=== PATIENT | male | born 1940 | race Caucasian/White ===

== ENCOUNTER 2016-10-09 12:31 | Inpatient (IN) | payer OTHER, MEDICARE ==
[~2016-10-09] VITALS: Ht 182.9 cm; Wt 89.8 kg
[~2016-10-09 12:31] MED LIST: LISINOPRIL40 M1 PO; METFORMIN HCL500 M3 PO
--- NOTE | 2016-10-09 12:56 | NUR ---
AKIL FROM HOME FOR INCREASED WEAKNESS, FREQUENT FALLS AND INABILITY TO AMBULATE FOR 2-4 WEEKS. 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 REPORTS SEVERAL YEARS AGO PT HAD "A PINCHED NERVE IN HIS BACK" AND RECIEVED AN INJECTION AND HAS WALKED INDEPENDENTLY SINCE THEN UNTIL PAST MONTH, WHEN PT HAS STARTED USING A WALKER, FALLING OFTEN AND NOW IS TOTALLY UNABLE TO AMBULATE. FELL 2 DAYS AGO AND HIT HEAD (ABRAISION TO RIGHT FOREHEAD), PT DENIES SMITH/DIZZINESS/N/V AND NEIGHBOR DENIES NEURO CHANGES SINCE, ALSO FELL LAST NIGHT. PT REPORTS HE WAS NOT DIZZY AND CAN RECALL DETAILS OF EACH FALL, "JUST NOT STRONG ENOUGH TO KEEP WALKING." WAS SEEN YESTERDAY AT [facility], WITH NEIGHBOR REPORTING PT HAD TO BE CARRIED INTO THE OFFICE BUT IS UNABLE TO STATE IF THERE WERE ANY RECOMMENDATIONS/FINDING. NEIGHBOR REPORTS PT HAS HAD SOME GRADUAL COGNITIVE DECLINE OVER THE LAST FEW YEARS BUT NOTHING ACUTE. PT HAS NO COMPLAINTS CURRENTLY EXCEPT "I CAN'T WALK" AND "MY LEG HURTS" WHICH HE REPORTS CHRONIC PAIN NOT RELATED TO TRAUMA AND MILD WHEN SITTING ON STRETCHER.
--- NOTE | 2016-10-09 12:56 | NUR ---
PA STUDENT AT BEDSIDE FOR EVAL.
--- NOTE | 2016-10-09 13:04 | ED MVC/FALL/TRAUMA COMPLAINT ---
History of Present Illness General Chief Complaint: Fall Stated Complaint: FALL Source: patient, old records Exam Limitations: no limitations Vital Signs & Intake/Output Vital Signs & Intake/Output Vital Signs Date Time Temp Pulse Resp B/P B/P Pulse O2 O2 Flow FiO2 Mean Ox Delivery Rate 10/12 0924 65 138/70 10/12 0634 98.4 60 20 136/68 98 Room Air / 0000 97 Room Air 10/11 2254 98.0 70 20 142/70 97 Room Air 10/11 1417 98.3 80 20 140/70 97 Room Air 10/11 1348 Room Air ED Intake and Output 10/12 0000 10/11 1200 Intake Total 1820 600 Output Total 100 Balance 1720 600 Intake, IV 1220 600 Intake, Oral 600 Output, Stool 100 Allergies Coded Allergies: NO KNOWN ALLERGIES (09/15/15) Triage Note: BIBA FROM HOME FOR INCREASED WEAKNESS, FREQUENT FALLS AND INABILITY TO AMBULATE FOR 2-4 WEEKS. 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 REPORTS SEVERAL YEARS AGO PT HAD "A PINCHED NERVE IN HIS BACK" AND RECIEVED AN INJECTION AND HAS WALKED INDEPENDENTLY SINCE THEN UNTIL PAST MONTH, WHEN PT HAS STARTED USING A WALKER, FALLING OFTEN AND NOW IS TOTALLY UNABLE TO AMBULATE. FELL 2 DAYS AGO AND HIT HEAD (ABRAISION TO RIGHT FOREHEAD), PT DENIES SMITH/DIZZINESS/N/V AND NEIGHBOR DENIES NEURO CHANGES SINCE, ALSO FELL LAST NIGHT. PT REPORTS HE WAS NOT DIZZY AND CAN RECALL DETAILS OF EACH FALL, "JUST NOT STRONG ENOUGH TO KEEP WALKING." WAS SEEN YESTERDAY AT [facility], WITH NEIGHBOR REPORTING PT HAD TO BE CARRIED INTO THE OFFICE BUT IS UNABLE TO STATE IF THERE WERE ANY RECOMMENDATIONS/FINDING. NEIGHBOR REPORTS PT HAS HAD SOME GRADUAL COGNITIVE DECLINE OVER THE LAST FEW YEARS BUT NOTHING ACUTE. PT HAS NO COMPLAINTS CURRENTLY EXCEPT "I CAN'T WALK" AND "MY LEG HURTS" WHICH HE REPORTS CHRONIC PAIN NOT RELATED TO TRAUMA AND MILD WHEN SITTING ON STRETCHER. Triage Nurses Notes Reviewed? yes Onset: Gradual Duration: week(s):, constant, getting worse Timing: recent history Severity: mild, moderate Severity Numbers: 6 Injuries/Fall Location: lower extremity Method of Injury: fall Loss of Consciousness: no loss of consciousness No Modifying Factors: none Associated Symptoms: denies HPI: 76-year-old male with history of diabetes hypertension rectal cancer presents to ER for evaluation with a neighbor who states that he has had multiple falls despite using his walker over the past several weeks. The patient states that he has had a history of right leg weakness, and pain for the past several months for which she was seen at [facility] earlier this week and was diagnosed with arthritis. He is prescribed tramadol for the pain. According to the neighbor the patient has been unstable with using his walker and fell yesterday there was no head strike no loss of consciousness the patient denies any other injury secondary to the fall. He denies any prodromal dizziness lightheadedness palpitations prior to the fall. No confusion or change in his mental status per neighbor (SHEILA HUDSON) Reconcile Medications Cyanocobalamin (Vitamin B-12) 1,000 MCG TABLET 1,000 MCG PO DAILY SUPPLEMENT Dexamethasone 1 MG TABLET 4 MG PO Q6 SPINAL CORD COMPRESSION Lisinopril 40 MG TABLET 1 TAB PO DAILY BP (Reported) Metformin HCl 500 MG TABLET 1 TAB PO BID DIABETES (Reported) Mirabegron (Myrbetriq) (Unknown Strength) TAB.ER.24H 25 MG PO DAILY BLADDER ( Reported) Omeprazole 20 MG CAPSULE.DR 40 MG PO DAILY AC gerd Prochlorperazine Maleate 10 MG TABLET 1 TAB PO Q6 PRN GI (Reported) Tramadol HCl 50 MG TABLET 1 TAB PO BIDP PRN PAIN (Reported) (ROSHAN BLANCAS,NICOLA) Past History Travel History Traveled to [place] past 21 day No Medical History Any Pertinent Medical History? see below for history Neurological: NONE EENT: NONE Cardiovascular: hypertension Respiratory: NONE Gastrointestinal: NONE Hepatic: NONE Renal: NONE Musculoskeletal: NONE Psychiatric: NONE Endocrine: diabetes Blood Disorders: NONE Cancer(s): RECTAL CA COPY READER/Reproductive: NONE Surgical History Surgical History: non-contributory Psychosocial History What is your primary language Turkish Family History Hx Contributory? No (SHEILA HUDSON) Review of Systems Review of Systems Constitutional: Reports: see HPI. All Other Systems: Reviewed and Negative Comments Review of systems: See HPI, All other systems negative. Constitutional, no chills no fever, malaise HEENT: No visual changes no sore throat no congestion, no ear pain Cardiovascular: No chest pain , no palpitation Skin: no rashes, no change in skin Respiratory: No dyspnea no cough no sputum no hemoptysis GI: No nausea no vomiting, no diarrhea, : No dysuria No hematuria Muscle skeletal: No joint pain, no back pain, no neck pain, Neurologic: No numbness no confusion, no headache Psych: No stress Heme/endocrine: No bruising no bleeding Immunology: No lymphadenopathy (NICHOL GAYLE,SHEILA) Physical Exam Physical Exam General Appearance: well developed/nourished, no apparent distress, alert, awake Comments: Well-developed well-nourished person in no acute distress HEENT: Normal EENT exam; PERRL, EOMI, no nystagmus. HEAD is atraumatic. moist mucous membranes. Neck: Supple, no lymphadenopathy, normal range of motion without pain or tenderness Back: Nontender, no CVA tenderness. Full range of motion no midline tenderness no ecchymosis or signs of trauma Cardiovascular: Regular rate and rhythms no murmurs rubs or gallops, normal JVP Respiratory: Chest nontender.There were no bony deformities, no asymmetry. No respiratory distress. Patient speaking in full complete sentences. Breath sounds clear to auscultation bilaterally: NO W/R/R Abdomen: Soft, nontender nondistended, no appreciable organomegaly. Normal bowel sounds. No rebound/guarding, No appreciable enlargement of the abdominal aorta, No ascites. Upper Extremity: No edema, full range of motion of extremities, normal and equal pulses bilaterally, 5 out of 5 strength noted to bilateral upperextremities Hip/Pelvis: Atraumatic/Stable. FROM. No pain with pelvic compression Knee: Atraumatic/stable. FROM. No joint swelling, no effusion. No laxity. Negative marcos/anterior drawer test. No pain with ROM Leg: Atraumatic. Nontender. No shortening or external rotation noted to the right lower extremity No edema, 5 out of 5 strength in the lower extremity, normal dorsiflexion of great toe bilaterally, gross sensation is intact Ankle/Foot: Atraumatic/stable. Skin intact. FROM. No swelling, no effusion. No laxity on exam Pulses: Normal/equal DP/PT pulses bilaterally. Brisk cap refill Neuro: Alert oriented x3, motor sensory normal, cranial nerves II through XII grossly intact. There were no obvious focal neurologic abnormalities. Skin: No appreciable rash on exposed skin, skin is warm and dry. Psych: Mood and affect is normal, memory and judgment is normal. Core Measures ACS in differential dx? No Severe Sepsis Present: No Septic Shock Present: No (NICHOL GAYLE,SHEILA) Progress Differential Diagnosis: abd injury, C/T/L spine injury, ext injury, pelvis injury, pnemothorax, spinal cord injury, electrolyte abnoramlity, dehydration Plan of Care: Orders Procedure Date/time Status Turn and Reposition 10/11 1306 Active Skin Integrity Protocol 10/11 1306 Active Current Medications Sig/Ray Start time Last Medication Dose Stop Time Status Admin Lisinopril 40 MG DAILY 10/11 1000 AC 10/12 (Prinivil) 0924 Omeprazole 40 MG DAILY AC 10/11 0746 AC 10/12 (Prilosec) 0606 Dexamethasone 4 MG Q6 10/10 1800 AC 10/12 (Decadron Inj) 0606 Insulin Aspart 0 TIDAC 10/10 1200 AC 10/12 (NovoLOG) 0924 Enoxaparin Sodium 40 MG DAILY 10/10 1000 AC 10/12 (Lovenox) 0924 Morphine Sulfate 4 MG Q6P PRN 10/10 0815 AC 10/11 (Morphine) 1328 Tramadol HCl 50 MG Q4 HRS NEEDED PRN 10/10 0815 AC 10/11 (Ultram) 2228 Cyanocobalamin 1,000 MCG DAILY 10/09 1918 AC 10/12 (Vitamin B12) 0924 Senna/Docusate Sodium 1 TAB BID PRN 10/09 1715 AC (Senokot S) Sodium Chloride 1,000 ML Q13H 10/09 1700 AC 10/12 (Normal Saline 0.9%) 0606 Acetaminophen 650 MG Q6P PRN 10/09 1600 AC (Tylenol) Laboratory Tests 10/12/16 0600: Sodium Cancelled, Potassium Cancelled, Chloride Cancelled, Carbon Dioxide Cancelled, Anion Gap Cancelled, BUN Cancelled, Creatinine Cancelled, BUN/ Creatinine Ratio Cancelled, CBC w Diff Cancelled, WBC Cancelled, RBC Cancelled, Hgb Cancelled, Hct Cancelled, MCV Cancelled, MCH Cancelled, RDW Cancelled, Plt Count Cancelled, MPV Cancelled, PUBS MCHC Cancelled Labs ordered old records reviewed including the patient's recent CAT scan of the abdomen and pelvis from last week patient medicated tramadol Discussed the patient all his lab results x-ray findings Patient attempted ambulation with nursing care, with unsteady gait using walker given he lives at home alone and discussed the patient I believe premature discharge would BE medically harmful which she is in agreement with (NICHOL GAYLE,SHEILA) Diagnostic Imaging: Viewed by Me: Radiology Read. Discussed w/RAD: Radiology Read. Radiology Impression: PATIENT: SAMIRA SOTELO PRESENT AGE: 76 PATIENT ACCOUNT NO: [id number] : 38 LOCATION: [facility] ORDERING PHYSICIAN: SHEILA GAYLE SERVICE DATE: 10/09/16 EXAM TYPE: RAD - XRY- AP PELVIS; XRY-LUMBOSACRAL SPINE AP & LAT EXAMINATION: 1. Radiographs lumbar spine. 2. Radiographs pelvis CLINICAL INFORMATION: Pain after fall COMPARISON: CT abdomen pelvis 10/04/2016 and pelvic radiographs 09/25/2016 TECHNIQUE: Frontal views of the pelvis and 3 views of the lumbar spine were obtained. FINDINGS: Levoscoliosis of the lumbar spine centered at L3. Alignment is otherwise within normal limits. Vertebral body heights are well-maintained. Decreased L4/L5 and L5/S1 disc space heights. Degenerative changes of the posterior elements of the lower lumbar spine. Multiple level anterior osteophytes. Pelvic ring is intact. Sacroiliac joints are symmetric. Femoral heads demonstrate good articulation with the respective glenoid fossa. Moderate degenerative changes of the bilateral hips. IMPRESSION: Degenerative changes of the lumbar spine and hips. No compression deformity of the lower lumbar spine. No pelvic fracture. DICTATED BY: ALY SOUZA MD DATE/TIME DICTATED:10/09/161410 LEARNING DEVELOPMENT SPECIALIST:WOODROW DATE/TIME TRANSCRIBED:10/09/161410 CONFIDENTIAL, DO NOT COPY WITHOUT APPROPRIATE AUTHORIZATION. <Electronically signed in Other Vendor System> SIGNED BY: ALY SOUZA MD 10/09/16 1420 (SHEILA HUDSON) Departure Departure Time of Disposition: 1534 Disposition: STILL A PATIENT Condition: Stable Clinical Impression Primary Impression: Gait instability Secondary Impressions: Chronic leg pain Referrals: JAYSHREE SAUCEDA MD (PCP/Family) Departure Forms: Customer Survey General Discharge Information Admission Note Spoke With: MANDIE ROSALES MD Documentation of Exam: Documentation of any treatments & extenuating circumstances including Concerns Regarding Discharge (functional status, medication knowledge or non-compliance, living conditions, etc.) that warrant an admission rather than observation: pt unable to perform adl's multiple falls recently despite using his walker, lives at home alone, unable to ambulate here safely. preamture discharge would be medically harmful. he is a fall risk (NICHOL GAYLE,SHEILA) Departure Prescriptions: Current Visit Scripts Omeprazole 40 MG PO DAILY AC #30 Cyanocobalamin (Vitamin B-12) 1,000 MCG PO DAILY #30 Dexamethasone 4 MG PO Q6 #30 PA/COLOR BUFFER Co-Sign Statement Statement: ED Attending supervision documentation- [X] I saw and evaluated the patient. I have also reviewed all the pertinent lab results and diagnostic results. I agree with the findings and the plan of care as documented in the PA's/COLOR BUFFER's documentation. [X] I have reviewed the ED Record and agree with the PA's/COLOR BUFFER's documentation. [] Additions or exceptions (if any) to the PAs/COLOR BUFFER's note and plan are summarized below: [] (ROSHAN BLANCAS,NICOLA)
--- NOTE | 2016-10-09 13:29 | NUR ---
NALINI GANDARA AT BEDSIDE
--- NOTE | 2016-10-09 13:53 | NUR ---
LABS DRAWN AND SENT
[2016-10-09] MEDS ORDERED: PROCHLORPERAZIN10 MG PO (14:10)
[2016-10-09] MEDS ORDERED: MYRBETRIQ50 M1 PO (14:11)
[2016-10-09] MEDS ORDERED: TRAMADOL HCL50 M1 PO (14:11)
--- NOTE | 2016-10-09 14:11 | NUR ---
C/O INCREASED PAIN UPON RETURN FROM XRAY. PT MOVING AROUND ON STRETCHER WITHOUT DIFFICULTY, BECKER. MEDICATED WITH TRAMADOL PER EMAR. AWAITING XRAY RESULTS AND THEN WILL ATTEMPT TO WALK PT WITH WALKER IF NO FRACTURE.
[2016-10-09 14:12] LABS: ABSOLUTE BASOPHIL COUNT 0 /CUMM (0.0-0.2); ABSOLUTE EOSINOPHIL COUNT 0 /CUMM (0.0-0.7); ABSOLUTE GRANULOCYTE CT 6.1 /CUMM (1.4-6.5); ABSOLUTE LYMPH COUNT 0.5 /CUMM (1.2-3.4); ABSOLUTE MONOCYTE COUNT 0.4 /CUMM (0.10-0.60); BASOPHIL % 0.1 % (0.0-2.0); EOSINOPHIL % 0.6 % (0-5); HEMATOCRIT 31.2 % (42-52); MEAN CORPUSCULAR HGB 33.5 PG (27.0-31.0); MEAN CORPUSCULAR HGB CONC 34.5 G/DL (33.0-37.0); MEAN CORPUSCULAR VOLUME 97.1 FL (80.0-94.0); MEAN PLATELET VOLUME 7.2 FL (7.4-10.4); PLATELET COUNT 221 /CUMM (130-400); RBC DISTRIBUTION WIDTH 16.3 % (11.5-14.5); RED BLOOD CELL CT 3.21 /CUMM (4.70-6.10)
--- NOTE | 2016-10-09 14:20 | RADIOLOGY REPORT ---
EXAMINATION: 1. Radiographs lumbar spine. 2. Radiographs pelvis CLINICAL INFORMATION: Pain after fall COMPARISON: CT abdomen pelvis 10/04/2016 and pelvic radiographs 09/25/2016 TECHNIQUE: Frontal views of the pelvis and 3 views of the lumbar spine were obtained. FINDINGS: Levoscoliosis of the lumbar spine centered at L3. Alignment is otherwise within normal limits. Vertebral body heights are well-maintained. Decreased L4/L5 and L5/S1 disc space heights. Degenerative changes of the posterior elements of the lower lumbar spine. Multiple level anterior osteophytes. Pelvic ring is intact. Sacroiliac joints are symmetric. Femoral heads demonstrate good articulation with the respective glenoid fossa. Moderate degenerative changes of the bilateral hips. IMPRESSION: Degenerative changes of the lumbar spine and hips. No compression deformity of the lower lumbar spine. No pelvic fracture.
[2016-10-09 14:23] LABS: GRANULOCYTE % 86.8 % (42.2-75.2)
--- NOTE | 2016-10-09 15:10 | NUR ---
MST ATTEMPTED TO AMBULATE PT WITH WALKER, PT REQUIRED ASSIST TO GET OFF STRETCHER, WALKED ABOUT 5-10 FEET WITH RW AND THEN STATED HE COULD NOT GO FURTHER, TURNED AROUND, GAIT BECAME UNSTEADY WITH LIMPING ON RIGHT SIDE. PT SAT IN CHAIR AND NEARLY FELL WHEN ATTEMPTING TO GET, UNABLE TO SAFELY AMBULATE INDEPENDENTLY WITH WALKER AT THIS TIME.
--- NOTE | 2016-10-09 15:47 | History & Physical ---
SUNITHA DEE MD 10/09/16 1546: General Information and HPI MD Statement: I have seen and personally examined SAMIRA CALLE and documented this H&P. The patient is a 76 year old M who presented with a patient stated chief complaint of RECURRENT FALLS]. History of Present Illness: Mr. Calle is a 76-year-old gentleman with rectal cancer diagnosed in June 2015 on routine colonoscopy performed by Dr. Gutierrez status post left colectomy and a colostomy bag in November 2015 under the service of Dr. Chow status post radiation therapy with Dr. Daniel Main between February to April 2016,, receiving adjuvant 5-FU based chemotherapy once weekly with an under supervision of Dr. Lenz. He has a neglected colon cancer as well which the patient has refused treatment in the past. The patient was scheduled for chemotherapy at Dr. Lenz's office today when he was not able to make to his appointment due to recurrent falls and weakness in his legs and will was asked by the visiting nurses to come to the emergency department for further evaluation. As per the patieent he has been doing well for quite some time but has been having persistent bilateral leg weakness and tendency to fall in the last 2 weeks. His last appointment with Dr. Verdin was 10/02/2016 at that time he was concerned about his persistent diarrhea and recurrent falls for which he did with CT abdomen and pelvis did not show any metastatic lesions. The patient was scheduled for his weekly chemotherapy at Dr. Verdin's office when he was not able to make it to his appointment as he had a fall last night. He was referred by the visiting nurses to the emergency department for further evaluation.He was seen by the Allergies/Medications Allergies: Coded Allergies: NO KNOWN ALLERGIES (09/15/15) Home Med list Lisinopril 40 MG TABLET 1 TAB PO DAILY BP (Reported) Metformin HCl 500 MG TABLET 1 TAB PO BID DIABETES (Reported) Mirabegron (Myrbetriq) (Unknown Strength) TAB.ER.24H (Unknown Dose) PO DAILY BLADDER (Reported) Prochlorperazine Maleate 10 MG TABLET 1 TAB PO Q6 PRN GI (Reported) Tramadol HCl 50 MG TABLET 1 TAB PO BIDP PRN PAIN (Reported) Past History Travel History Traveled to [place] past 21 day No Medical History Neurological: NONE EENT: NONE Cardiovascular: hypertension Respiratory: NONE Gastrointestinal: COLOSTOMY Hepatic: NONE Renal: NONE Musculoskeletal: CHRONIC BACK PAIN Psychiatric: NONE Endocrine: diabetes Blood Disorders: NONE Cancer(s): RECTAL CA [employer] 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 Home Who Do You Live With? self Services at Home: Nursing Primary Language: Lao Smoking Status: Former Smoker ETOH Use: denies use Review of Systems Review of Systems Constitutional: Reports: see HPI. EENTM: Reports: see HPI. Cardiovascular: Denies: chest pain. Respiratory: Denies: cough, orthopnea, short of breath. GI: Denies: bloating, constipation, diarrhea, distention, bowel incontinence. Genitourinary: Denies: discharge, dysuria, frequency, hematuria. Musculoskeletal: Denies: back pain, gout, joint pain. Skin: Denies: erythema, jaundice. Exam & Diagnostic Data Last 24 Hrs of Vital Signs/I&O Vital Signs Date Time Temp Pulse Resp B/P B/P Pulse O2 O2 Flow FiO2 Mean Ox Delivery Rate 10/09 1634 97.3 67 20 149/67 99 Room Air 10/09 1517 97.8 88 18 141/65 99 Room Air 10/09 1248 97.9 81 20 126/71 97 Room Air Intake & Output 10/09 1600 10/09 0800 10/09 0000 Intake Total Output Total Balance Patient 195 lb Weight Weight Estimated Measurement Method Physical Exam General Appearance Alert, Oriented X3, Cooperative Skin No Rashes, No Breakdown Skin Temp/Moisture Exam: Warm/Dry Sepsis Skin Exam (color): Normal for Ethnicity HEENT Atraumatic, PERRLA Neck Supple, No JVD Lymphatic Axillary nl, Cervical nl Cardiovascular Regular Rate, Normal S1, Normal S2 Lungs bilateral decreased airway entryb. Abdomen Normal Bowel Sounds, Soft, No Tenderness, soft nontender, left colostomy bag Neurological Normal Gait, Normal Speech, Strength at 5/5 X4 Ext, Normal Tone, Sensation Intact, Cranial Nerves 3-12 NL, Reflexes 2+, b/l 5/5 strength in upper and lowe extremity normal rectal tone on MARIAELENA no eveiudence of incontinence Last 24 Hrs of Labs/Gorge: Laboratory Tests 10/09/16 1352: Anion Gap 12, Estimated GFR > 60, BUN/Creatinine Ratio 21.3, Glucose 122 H, Calcium 9.2, Total Bilirubin 0.6, AST 15 L, ALT 24, Alkaline Phosphatase 59, Total Protein 6.3, Albumin 4.0, Globulin 2.3, Albumin/Globulin Ratio 1.7, CBC w Diff NO MAN DIFF REQ, RBC 3.21 L, MCV 97.1 H, MCH 33.5 H, RDW 16.3 H, MPV 7.2 L, Gran % 86.8 H, Lymphocytes % 7.0 L, Monocytes % 5.5, Eosinophils % 0.6 , Basophils % 0.1, Absolute Granulocytes 6.1, Absolute Lymphocytes 0.5 L, Absolute Monocytes 0.4, Absolute Eosinophils 0, Absolute Basophils 0, PUBS MCHC 34.5 Diagnostic Data EKG Results Normal sinus rhythm Assessment/Plan Assessment: Subjective this is a 76-year-old male with a past medical history of hypertension, rectal cancer status post resection, colostomy, undergoing neoadjuvant radiation and chemotherapy on weekly basis who presented to the [facility] with persistent recurrent falls and weakness Vitals at the time of admission showed blood pressure of 148/68, respiration rate of 18, pulse rate of 68,: Labs shows a WBC of 7, hemoglobin of 10.8, hematocrit of 31.2, platelet count of 221 Sodium 132, potassium of 4.4, and chloride of 96, glucose of 122, EKG showed normal sinus rhythm Assessment 1. Recurrent falls and gait instability in the setting of metastatic rectal cancer undergoing neoadjuvant chemotherapy and radiation therapy. In this setting one would be concerned about cord compression and metastatic lesion to the spine and brain. On physical exam patient does not have signs of cauda equina or cord compression(normal rectal tone, 5/5 b/l in upper and lower extremity,no focal neurological changes. His rectal tone was intact and he exhibited no leg weakness. He was able to walk from with slight instability. He normally ambulates with a walker at home . Other etiology could be low vitamin b12 and folate levels which is commonly seen 5-FU. 2. History of hypertension 3. History of diabetes 4. History of rectal cancer status post resection and neoadjuvant chemoradiation therapy Plan Admit to general medicine floor Frequent neuro checks every 4 MRI of the spine and head with and without gadolinium has been ordered(due to late hours and indicates staff, MRI would be deferred till morning. It has been ordered urgently for 8 AM in the morning) Pain control with by mouth tramadol aVOID nephrotoxic agent Physical therapy Dr. Lambert BLANCAS was contacted and he agreed with the imaging and the plan NovoLog sliding scale for diabetes Gentle hydration with IV normal saline at 75 mL per hour hold lisinopril today and will resume from tomorrow considering the patient is chronic get BELLE in the morning Patient is full code Due to prophylaxis with subcutaneous Lovenox Pain pathways As Ranked By This Provider Problem List: 1. Gait instability Core Measures/Miscellaneous Acute Coronary Syndrome ACS Diagnosis: No Cerebrovascular Accident CVA/TIA Diagnosis: No Congestive Heart Failure CHF Diagnosis: No Venous Thromboembolism VTE Risk Factors: Acute medical illness, Age > 40 [facility] prophylaxis d/t: No contraindications No VTE Pharm Prophylaxis d/t: No contraindications VTE Diagnosis: No VTE Type: NONE VTE Confirmed by (Test): NONE Severe Sepsis Severe Sepsis Present: No Septic Shock Septic Shock Present: No Miscellaneous Documentation Attending Case Discussed With: JOSUÉ GREER Primary Care Physician: JAYSHREE SAUCEDA MD Patient sees these Specialists Dr. Lenz Level of Patient Care: General Medicine BOBBY BLANCAS,MANDIE 10/11/16 1342: Attending MD Review Statement Attending Statement Attending MD Statement: examined this patient, discuss w/resident/PA/PAN GREASER, agreed w/resident/PA/PAN GREASER, reviewed EMR data (avail), reviewed images Attending Assessment/Plan: See medical brief addendum dated 10/09/16
--- NOTE | 2016-10-09 16:33 | NUR ---
SEEN BY HOUSE STAFF. [facility] AWAITING IMAGING AND BED ASSIGNMENT.
--- NOTE | 2016-10-09 16:57 | Admission Certification ---
Admission Certification Certification Statement - As attending physician, I certify that at the time of - admission, based on clinical presentation, severity of - symptoms, need for further diagnostic testing and - therapeutic interventions, and risk of adverse outcomes - without in-hospital treatment, in my clinical assessment, - this patient requires an acute hospital stay for a minimum - of two nights or longer. I have also considered psychsocial - factors such as support system, advanced age, financial - issues, cognitive issues, and failed out-patient treatments, - past re-admission history, safety of patient, and lack of - compliance as applicable. Specific rationale supporting this admission is: Pt with known rectal CA getting chemotherapy with 5-FU here with weakness and falls
--- NOTE | 2016-10-09 17:04 | PN- Att Addend ---
Attending Addendum Attending Brief Note 76-year-old male known history of rectal cancer status post colectomy in November 2015 and has a colostomy, status post radiation treatment and now getting weekly chemotherapy with Dr. Verdin. He was last seen by Dr. Lenz at the end of September and his last imaging which consisted of a CT scan was done in September as well. The CT scan didn't show any new metastases and showed this 3.5 cm calcified left kidney mass that's present even on his previous x-rays and CAT/PET scans. He is here because he was found by his neighbor on the floor and he says that for the past 1 month he's been getting progressively weak up to the point of using a walker and has had multiple falls. He is mentating well, he has symmetric weakness and is able to move his legs against gravity, diminished reflexes and downgoing Babinski's with good rectal tone. No obvious orthostasis and labs show mild hyponatremia with chronic anemia. 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 At this point will bring him into gen med. The resdent spoke to Dr. Verdin and because of the symptomatology, the concern is whether he could have brain or bony metastases. We'll get an MRI of his brain and an MRI of his spine to clarify. At this point I don't have a clinical suspicion for cord compression and the MRI should help clear up that matter as well. Will treat him with gentle hydration for now, opiate analgesics for pain while watching for constipation closely, DVT prophylaxis. Continue his lisinopril but obviously hold his metformin and get a PT evaluation.
--- NOTE | 2016-10-09 17:48 | NUR ---
SET UP FOR DINNER
--- NOTE | 2016-10-09 18:18 | NUR ---
PT IS GOING TO 226-1
--- NOTE | 2016-10-09 18:40 | NUR ---
PT ATE 100% OF MEAL TRAY. LIGHTS DIMMED, CALL LIGHT IN REACH. 2N CALLED FOR REPORT, TERMITE CONTROL TECHNICIAN TO CALL BACK. PT REPEATEDLY ASKING WHEN HE IS GOING UPSTAIRS AND HAS BEEN KEPT INFORMED.
--- NOTE | 2016-10-09 18:51 | NUR ---
REPORT GIVEN TO DEWEY ON ORTH, MSG LEFT FOR DISTRIBUTION.
[2016-10-09 19:40] VITALS: BP 148/80
--- NOTE | 2016-10-09 20:46 | NUR ---
NURSING NOTE: PT ARRIVED TO FLOOR FROM ED. PT IS ALERT TO PERSON AND PLACE BUT CONFUSED TO TIME. PT IS ON ROOM AIR, NO DISTRESS NOTED. COLOSTOMY BAG TO L ABD, SITE WNL. SKIN INTACT, NO BREAKDOWN NOTED. UNSTEADY GAIT ASSIST X2 W/ RW. IV FLUIDS RUNNING AT 75 ML/HR. FALL PRECAUTIONS IN PLACE. NEURO CHECK PERFORMED. PT C/O PAIN 5/10 IN R LEG. PT PREVIOUSLY RECEIVED TRAMADOL IN ED AND DOES NOT WANT TO TAKE TYLENOL FOR HIS PAIN. NO OTHER COMPLAINTS AT THIS TIME. PT IS CALM, COOPERATIVE, NEIGHBOR PRESENT. AWAIT ANY ADDITIONAL ORDERS FROM MD. PT SHOWN HOW TO USE CALL LIGHT SYSTEM. WILL CONTINUE TO MONITOR.
[2016-10-09 22:18] VITALS: BP 140/84
[2016-10-10 07:23] VITALS: BP 150/74
--- NOTE | 2016-10-10 08:24 | PN- Housestaff ---
PRITI BLANCAS,MNAUEL 10/10/16 0824: Subjective Follow-up For: fall rectal cancer hypertension Subjective: Saw pt at bedside this AM. He stated that he had some neck pain and some RLE pain. He Review of Systems Constitutional: Reports: weakness. Denies: chills, fever. EENTM: Reports: no symptoms. Denies: blurred vision. Cardiovascular: Denies: chest pain, palpitations. Respiratory: Denies: hemoptysis, short of breath, sputum production, wheezing. Gastrointestinal: Reports: no symptoms. Genitourinary: Reports: no symptoms. Musculoskeletal: Reports: back pain, joint swelling, muscle stiffness, neck pain. Skin: Reports: no symptoms. Objective Last 24 Hrs of Vital Signs/I&O Vital Signs Date Time Temp Pulse Resp B/P B/P Pulse O2 O2 Flow FiO2 Mean Ox Delivery Rate 10/10 1135 Room Air 10/10 0723 98.2 72 20 150/74 98 Room Air 10/09 2218 97.8 69 20 140/84 98 Room Air 10/09 1940 98.7 80 20 148/80 100 Room Air 10/09 1830 97.3 78 20 122/60 98 Room Air 10/09 1634 97.3 67 20 149/67 99 Room Air 10/09 1517 97.8 88 18 141/65 99 Room Air Intake & Output 10/10 1600 10/10 0800 10/10 0000 Intake Total 1200 600 450 Output Total 200 100 Balance 1000 500 450 Intake, IV 600 600 150 Intake, Oral 600 300 Number 1 1 Bowel Movements Output, Stool 200 100 Patient 90.265 kg Weight Weight Reported by Patient Measurement Method Physical Exam General Appearance: Alert, Oriented X3, Cooperative, No Acute Distress Skin: No Significant Lesion HEENT: Atraumatic, PERRLA, EOMI Neck: Supple Cardiovascular: Regular Rate, Normal S1, Normal S2 Lungs: Normal Air Movement Abdomen: Pt has colostomy in LLQ of abdomen. Stoma pink and perfused. Neurological: Normal Speech, Strength at 5/5 X4 Ext, Normal Tone, Sensation Intact, Cranial Nerves 3-12 NL, Reflexes 2+ Current Medications: Current Medications Sig/Ray Start time Last Medication Dose Route Stop Time Status Admin Acetaminophen 650 MG Q6P PRN 10/09 1600 AC PO Cyanocobalamin 1,000 MCG DAILY 10/09 1918 AC 10/10 PO 0923 Dexamethasone 4 MG Q4 10/10 1800 UNir IV Dexamethasone 10 MG ONCE ONE 10/10 1515 UNir IV 10/10 1516 Enoxaparin Sodium 40 MG DAILY 10/10 1000 AC 10/10 SC 0923 Hydromorphone HCl 0.2 MG ONCE ONE 10/10 1145 DC 10/10 IV 10/10 1146 1150 Insulin Aspart 0 TIDAC 10/10 1200 AC SC Ketorolac 15 MG Q6P PRN 10/09 1600 DC Tromethamine IV Morphine Sulfate 1 MG ONCE ONE 10/10 1345 DC 10/10 IV 10/10 1346 1320 Morphine Sulfate 1 MG ONCE ONE 10/10 1300 DC 10/10 IV 10/10 1301 1320 Morphine Sulfate 2 MG ONCE ONE 10/10 0815 DC 10/10 IV 10/10 0816 0808 Morphine Sulfate 4 MG Q6P PRN 10/10 0815 AC IV Morphine Sulfate 2 MG Q6P PRN 10/09 1715 DC 10/10 IV 0653 Morphine Sulfate 2 MG Q4P PRN 10/09 1600 DC IV Patient Medication 1 ED .STK-MED ONE 10/10 1402 DC Teaching ED 10/10 1403 Senna/Docusate Sodium 1 TAB BID PRN 10/09 1715 AC PO Sodium Chloride 1,000 ML Q13H 10/09 1700 AC 10/10 IV 0600 Tramadol HCl 50 MG Q4 HRS NEEDED PRN 10/10 0815 AC 10/10 PO 0957 Tramadol HCl 50 MG Q6 10/09 1800 DC 10/10 PO 0600 Tramadol HCl 0 .STK-MED ONE 10/09 1732 DC PO Assessment/Plan Assessment: This is a 76-year-old male with a PMH of hypertension, rectal cancer status post resection, colostomy, undergoing neoadjuvant radiation and 5-FU chemo on weekly basis who presented to the [facility] with persistent recurrent falls and weakness. PLAN 1. Gait instability: In setting of colon/ rectal cancer on chemotherapy there was concern for metastasis to spine/brain, or chemotherapy side effect in addition to routine causes including musculoskeletal weakness, electrolyte derangements, etc. 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 * STAT neurosurgery call back * start decadron * b12 supplementation * MRI of brain and spine * pain control * Q2 neuro check * Dr. Verdin contacted and on board * Dr. Sanchez informed. 2. History of hypertension * chronic and stable 3. History of diabetes * Chronic and stable 4. History of rectal cancer status post resection and neoadjuvant chemoradiation therapy: Dr. Cinthia Verdin informed. On board. Will follow up full code subcutaneous Lovenox Problem List: 1. Chronic leg pain 2. Gait instability 3. Minor head injury Pain Ratin Pain Location: none Pain Goal: Remain pain free Pain Plan: none Tomorrow's Labs & Rationales: cbc bep ALEXEY CANADA 10/10/16 1111: Attending MD Review Statement Attending Statement Attending MD Statement: examined this patient, discuss w/resident/PA/SPRUE KNOCKER, agreed w/resident/PA/SPRUE KNOCKER, discussed with family, reviewed EMR data (avail), discussed with nursing, discussed with case mgmt, reviewed images, amended to note Attending Assessment/Plan: ASSESSMENT 1. Gait instability/ataxia. 2. Rectal cancer s/p colectomy 11/22 3. s/p colostomy s/p radiation treatment on weekly chemotherapy 4. Left kidney mass calcified stable 5. hyponatremia 6. Anemia mutlifactorial 7. Generalised weakness and physical deconditioning. 8. Vitamin b12 defeciency. PLAN Admit to inpatient medical services MRI brain/spine brain or bony metastases. Will treat him with gentle hydration for now, opiate analgesics for pain while watching for constipation closely. bowel regimen supplement vit b12. PT evaluation. DVT prophylaxis.
--- NOTE | 2016-10-10 11:27 | NUR ---
1125- PT LEFT FLOOR VIA STRETCHER FOR MRI
--- NOTE | 2016-10-10 14:09 | NUR ---
1140- [employer]INE[employer] INFORMED THIS RN THAT PT IS COMPLAINING OF PAIN 10/10 AND REFUSING MRI UNLESS PAIN MED GIVEN. DR. MARCOS NOTIFIED OF ABOVE. ORDER FOR DILAUDID 0.2 MG IV PLACED. MEDICATION BROUGHT DOWN TO MRI SUITE AND ADMINISTERED 1300- PT COMPLAINING OF PAIN AND REQUESTING ADDITIONAL MEDICATION. DR. DEE AT PT SIDE IN MRI SUITE. ORDER PLACED FOR IV MORPHINE. MEDICATION BROUGHT TO MRI SUITE AND ADMINISTERED. 1400- PT RETURNED TO FLOOR VIA STRETCHER. PT STATES HE WAS ABLE TO TOLERATE THE MRI AND SCANS WERE COMPLETED. PAIN 4/10 AT THIS TIME TO Armando MORRIS
--- NOTE | 2016-10-10 14:16 | PN- Student ---
Subjective Subjective: CC: Increased weakness, frequent falls, and inability to ambulate for 2-4 weeks HPI: Patient is a 76-year-old man with a past medical history significant for hypertension, rectal cancer, colostomy bag placement, and chronic back pain who presented to [facility] complaining of weakness and frequent falls. Colonoscopy leading to rectal cancer diagnosis was done by Dr. Gutierrez status post colectomy in June 2015. Colostomy bag placement was done by Dr. Chow status post radiation with Dr. Sanchez in November 2015. Currently on a once-weekly 5- FU chemotherapy schedule under the supervision of Dr. Lenz. Patient was scheduled for his next dose of 5-FU on 10/09/2016 but had to cancel secondary to weakness and frequent falls. His last appointment with Dr. Lenz was on 2016. Patient reports bilateral leg weakness and an increased incidence of falling within the last 2-4 weeks. Past Medical History: Hypertension, Chronic back pain, Rectal cancer, Colostomy Surgical History: Non-contributory Family History: Non-contributory Psychosocial History: Patient lives alone at home. He describes himself as a former smoker, and denies alcohol use. Allergies: No known allergies Home Medication List: Lisinopril 40 mg Tablet - 1 Tab PO Daily BP Metformin HCl 500 mg Tablet - 1 Tab PO BID Diabetes Mirabegron (Myrbetriq) (Unknown Strength) (Unknown Dose) - TAB.ER.24H PO Daily Bladder Prochlorperazine Maleate 10 mg Tablet - 1 Tab PO Q6 PRN GI Tramadol HCl 50 mg Tablet - 1 Tab PO BID PRN Pain Review of Systems: Constitutional: Reports: weakness. Denies: chills, fever. EENTM: Reports: no symptoms. Denies: blurred vision. Cardiovascular: Denies: chest pain, palpitations. Respiratory: Denies: hemoptysis, short of breath, sputum production, wheezing. Gastrointestinal: Reports: no symptoms. Genitourinary: Reports: no symptoms. Musculoskeletal: Reports: back pain, joint swelling, muscle stiffness, neck pain. Skin: Reports: no symptoms. Objective Objective: Vital Signs Date Time Temp Pulse Resp B/P B/P Pulse O2 O2 Flow FiO2 Mean Ox Delivery Rate 10/10 1135 Room Air 10/10 0723 98.2 72 20 150/74 98 Room Air 05/03 2218 97.8 69 20 140/84 98 Room Air 05/ 1940 98.7 80 20 148/80 100 Room Air 05/ 1830 97.3 78 20 122/60 98 Room Air 05/ 1634 97.3 67 20 149/67 99 Room Air 05/03 1517 97.8 88 18 141/65 99 Room Air Intake & Output 10/10 1600 / 0800 05/ 0000 Intake Total 600 450 Output Total 100 Balance 500 450 Intake, IV 600 150 Intake, Oral 300 Number 1 1 Bowel Movements Output, Stool 100 Patient 199 lb Weight Weight Reported by Patient Measurement Method Physical Examination: General Appearance: Alert, Oriented X3, Cooperative, No Acute Distress Skin: No Significant Lesion HEENT: Atraumatic, PERRLA, EOMI Neck: Supple Cardiovascular: Regular Rate, Normal S1, Normal S2 Lungs: Normal Air Movement Abdomen: Patient has a LLQ abdominal colostomy. Stoma pink and perfused. Neurological: Normal Speech, Strength at 5/5 X4 Ext, Normal Tone, Sensation Intact, Cranial Nerves 3-12 NL, Reflexes 2+ Current Medications Sig/Ray Start time Last Medication Dose Route Stop Time Status Admin Acetaminophen 650 MG Q6P PRN 10/09 1600 AC PO Cyanocobalamin 1,000 MCG DAILY 10/09 1918 AC 10/10 PO 0923 Enoxaparin Sodium 40 MG DAILY 10/10 1000 AC 10/10 SC 0923 Hydromorphone HCl 0.2 MG ONCE ONE 10/10 1145 DC 10/10 IV 10/10 1146 1150 Insulin Aspart 0 TIDAC 10/10 1200 AC SC Ketorolac 15 MG Q6P PRN 10/09 1600 DC Tromethamine IV Morphine Sulfate 1 MG ONCE ONE 10/10 1345 DC 05/ IV 10/10 1346 1320 Morphine Sulfate 1 MG ONCE ONE 10/10 1300 DC 10/10 IV 10/10 1301 1320 Morphine Sulfate 2 MG ONCE ONE 10/10 0815 DC 10/10 IV 10/10 0816 0808 Morphine Sulfate 4 MG Q6P PRN 10/10 0815 AC IV Morphine Sulfate 2 MG Q6P PRN 10/09 1715 DC 10/10 IV 0653 Morphine Sulfate 2 MG Q4P PRN 10/09 1600 DC IV Patient Medication 1 ED .STK-MED ONE 10/10 1402 DC Teaching ED 10/10 1403 Senna/Docusate Sodium 1 TAB BID PRN 10/09 1715 AC PO Sodium Chloride 1,000 ML Q13H 10/09 1700 AC 10/10 IV 0600 Tramadol HCl 50 MG Q4 HRS NEEDED PRN 10/10 0815 AC 10/10 PO 0957 Tramadol HCl 50 MG Q6 10/09 1800 DC 10/10 PO 0600 Tramadol HCl 0 .STK-MED ONE 10/09 1732 DC PO Tramadol HCl 50 MG ONCE ONE 10/09 1415 DC 10/09 PO 10/09 1416 1411 Assessment/Plan Assessment: Patient is a 76-year-old man with a past medical history significant for hypertension, rectal cancer, colostomy bag placement, and chronic back pain who presented to [facility] complaining of weakness and frequent falls. Currently on a once-weekly 5-FU chemotherapy schedule under the supervision of Dr. Lenz. 1 - Gait Instability and Recurrent Falls 2 - Hypertension 3 - Rectal Cancer 4 - Chronic Back Pain 5 - Diabetes Mellitus 1. Gait Instability and Recurrent Falls. Patient reports bilateral leg weakness and frequent falls within the last 2-4 weeks in the setting of rectal cancer treated with weekly 5-FU chemotherapy regimen. Concern for metastasis to the spine/brain. * MRI findings - Metastatic lesion involving the C5/C6 spinous processes and C5 facet resulting in C5-C6 cord compression * Call neurosurgery * Inform Dr. Lenz & Dr. Sanchez * Neuro checks Q2 * Decadron * Vitamin B12 PO 1000 mcg 2. Hypertension * Stable 3. Rectal Cancer. Colonoscopy leading to rectal cancer diagnosis was done by Dr. Gutierrez status post colectomy in June 2015. Possible risk of metastasis. * MRI findings - Metastatic lesion involving the C5/C6 spinous processes and C5 facet resulting in C5-C6 cord compression * Inform Dr. Lenz 4. Chronic Back Pain * Tramadol HCl 5. Diabetes Mellitus * NovoLog sliding scale
--- NOTE | 2016-10-10 15:18 | MRI REPORT ---
EXAMINATION: MRI OF THE BRAIN WITH AND WITHOUT IV CONTRAST MRI OF THE CERVICAL, THORACIC, AND LUMBAR SPINE WITH AND WITHOUT IV CONTRAST CLINICAL INFORMATION: Persistent back pain and recurrent falls to assess for metastatic lesion. COMPARISON: Head CT 08/22/[address] 10/04/2016. TECHNIQUE: MRI of the brain and entire spine are obtained before and following the administration of cc of Gadavist IV contrast without complication. FINDINGS: Brain MRI: This is a very motion degraded MRI of the brain. Very limited assessment for parenchymal signal abnormality given the degree of artifact with suspected mild background chronic microangiopathy. There is no hydrocephalus, extra-axial surface collection, or herniation. The major flow voids at the skull base are preserved. There is no acute infarct on diffusion-weighted imaging. There is no acute intracranial hemorrhage on the gradient recalled echo acquisition. The midline structures are normal. The cerebellar tonsils are normally positioned. The cerebellum and brainstem are normal. The craniocervical junction is normal. Osseous marrow signal intensity is homogenous. The visualized soft tissues are unremarkable. The right sphenoid sinus is completely opacified. Mild mucosal thickening within the maxillary sinuses and throughout the ethmoid air cells bilaterally. The mastoid air cells are clear. Cervical Spine MRI: There is a metastatic lesion involving the C5 and C6 spinous processes and the left C5 facet associated with a dorsal heterogeneously enhancing epidural lesion that results in compression of the cervical spinal cord at C5-C6 and to a lesser extent C4-C5. There are likely T2 signal changes within the cord at this level, limitedly assessed given the degree of artifact. There is no additional marrow placement within the cervical spine to suggest additional osseous metastatic lesions. No additional epidural tumor is appreciated. The cervical arterial flow voids are maintained. There is multilevel cervical spondylosis that is limitedly assessed by the degree of artifact. Other than at C5-C6, there is no additional severe central canal stenosis within the cervical spine. Uncovertebral joint hypertrophy and hypertrophic facet arthropathy results in moderate right foraminal stenosis at C3-C4 and mild to moderate left foraminal stenosis at C4-C5. Thoracic Spine MRI: Thoracic alignment is normal. Vertebral body heights are maintained. There is mild to moderate disc volume loss at the mid thoracic levels. There is mild chronic vertebral body height loss at the T6 and T7 levels. There are no enhancing intraosseous lesions within the thoracic spine. There is no pathologic intrathecal enhancement. At T10-T11 there is a small annular disc bulge and there is bilateral hypertrophic facet arthropathy and ligamentum flavum thickening that result in moderate central canal stenosis and mass effect on the distal thoracic cord. Lumbar Spine MRI: L5 is sacralized and shares a rudimentary disc with S1. There is grade 1 degenerative anterolisthesis of L4 on L5. Lumbar alignment is otherwise maintained. The vertebral body heights are preserved. Bone marrow signal is homogenous and normal. There is no evidence of metastatic disease within the lumbar spine. There are no enhancing intraosseous lesions and there is no pathologic intradural enhancement. A calcified lesion within the upper pole the left kidney is better demonstrated on recent CT imaging. There is fatty marrow conversion within the imaged bony pelvis and sacrum as the sequela of prior radiation therapy. L2-L3: Diffuse annular disc bulge that is eccentric to the left and mild bilateral facet arthropathy. There is moderate left and mild right foraminal stenosis. No central canal stenosis. Disc likely abut the extraforaminal left L2 nerve root. L3-L4: There is a diffuse annular disc bulge and there is severe bilateral hypertrophic facet arthropathy. Mild to moderate central canal stenosis and bilateral subarticular zone stenosis with possible mass effect on the traversing L4 nerve roots bilaterally. Moderate right and mild left foraminal stenosis with mass effect on the exiting right L3 nerve root. L4-L5: Grade 1 anterolisthesis. Diffuse annular disc bulge and severe bilateral facet arthropathy and ligamentum flavum thickening. Markedly severe central canal stenosis. There is a right foraminal disc protrusion that also results in severe right foraminal stenosis and compression of the exiting right L4 nerve root. L5-S1: There is a diffuse annular disc bulge and there is moderate bilateral hypertrophic facet arthropathy. Bilateral subarticular zone stenosis with mass effect on the traversing S1 nerve roots bilaterally. IMPRESSION: -There is a metastatic lesion involving the C5 and C6 spinous processes and the left C5 facet associated with a heterogeneously enhancing dorsal epidural lesion that results in compression of the cervical spinal cord at C5-C6 and to a lesser extent C4-C5 with associated cord signal abnormality. - No additional evidence of metastatic disease along the spinal axis. - There is no definite evidence of intracranial metastatic disease however please note that the brain MRI portion of this study is very degraded by motion artifact. No definite enhancing lesions are identified. - L5 is sacralized. Multilevel lumbar spondylosis, greatest at L4-L5 where grade 1 anterolisthesis and multifactorial degenerative changes result in markedly severe central canal stenosis and severe right foraminal stenosis with compression of the exiting right L4 nerve root. Additional multilevel subarticular zone stenosis and foraminal stenosis at the L3-L4 and L5-S1 levels with mass effect on multiple traversing and exiting nerve roots as discussed above. - At T10-T11 there is a small annular disc bulge and there is bilateral hypertrophic facet arthropathy and ligamentum flavum thickening that result in moderate central canal stenosis and mass effect on the distal thoracic cord. - Complete opacification of the right sphenoid sinus. Findings discussed with Dr. Cardenas at 2:57 PM on 10/10/2016.
[2016-10-10 15:19] VITALS: BP 146/68
--- NOTE | 2016-10-10 15:24 | Event Note ---
Event Note Event Note: After speaking to the radiologist in length regarding the new metastatic lesion finding the cervical spine, I spoke to Dr. Mendez,(Oncology), Dr Chandan Main( radiation Oncology), and updated them about the results. The patient was also administered IV Decadron 10 mg once And followed by 4 mg every 6. Considering that the patient has these ongoing symptoms of leg weakness and no recent motor or neurological changes in the patient's symptoms, the patient is being maintained on neurochecks every 4 hours We also contacted neurosurgery with the stat consult and a callback. Case was discussed in detail with Dr. Chaudhary and surgical PA . At this point they did not feel the need to any surgical intervention , as cord compression is likely secondary to known metastases, and surgical intervention is indicated only in case of unknown cause of cord compression They agreed with the dosage and the treatment with Decadron and recommended treatment plan as suggested by the radiation oncology.
--- NOTE | 2016-10-10 16:00 | Cons- Oncology ---
General Information and HPI Consulting Request Date of Consult: 10/10/16 Requested By: Dr. Higuera Reason for Consult: Weakness and multiple falls in the setting of newly diagnosed metastatic disease Source of Information: patient, old records, friend Exam Limitations: no limitations History of Present Illness: CHIEF COMPLAINT: Weakness and multiple falls Patient Identification: 76-year-old white male with a known history of rectal carcinoma status post chemoradiation followed by robotic APR now presents with metastatic findings HISTORY OF PRESENT ILLNESS: Patient is a 76-year-old white male with a known history of clinical stage T3NOMO nearly circumferential nonobstructing rectal cancer who presented with rectal bleeding and underwent induction radiation therapy with concomitant chemotherapy. This was completed in September 2015. This was followed by surgical resection in the form of APR on 12/28/2015, [id number] high-grade adenocarcinoma invading perirectal tissue measuring 4 x 3 x 0.9 cm. Surgical margins were negative. 9 total lymph nodes were removed with 0/9 involved with metastatic disease. [facility] and admitted after presenting with chronic neck pain, weakness and falls. He reports bilateral lower extremity weakness. He underwent imaging as below and was started on Decadron therapy. MRI total spine: 10/10/2016: Metastatic disease involving C5 and C6 spinous processes and the left C5 facet associated with a heterogeneous enhancing dorsal epidural lesion resulting in compression of the cervical cord at C5-C6 and to a lesser extent C4-C 5. No additional evidence of metastatic disease; CT scan abdomen/pelvis 10/04/2016: Partial left-sided colectomy; no obvious mass or lymphadenopathy; no enlarged mesenteric or retroperitoneal lymph node; calcified lesion in the upper pole of the left kidney Allergies/Medications Allergies: Coded Allergies: NO KNOWN ALLERGIES (09/15/15) Home Med List: Lisinopril 40 MG TABLET 1 TAB PO DAILY BP (Reported) Metformin HCl 500 MG TABLET 1 TAB PO BID DIABETES (Reported) Mirabegron (Myrbetriq) (Unknown Strength) TAB.ER.24H (Unknown Dose) PO DAILY BLADDER (Reported) Prochlorperazine Maleate 10 MG TABLET 1 TAB PO Q6 PRN GI (Reported) Tramadol HCl 50 MG TABLET 1 TAB PO BIDP PRN PAIN (Reported) Current Medications: Current Medications Sig/Ray Start time Last Medication Dose Route Stop Time Status Admin Acetaminophen 650 MG Q6P PRN 10/09 1600 AC PO Cyanocobalamin 1,000 MCG DAILY 10/09 1918 AC 10/10 PO 0923 Dexamethasone 4 MG Q4 10/10 1800 AC IV Dexamethasone 10 MG ONCE ONE 10/10 1515 DC IV 10/10 1516 Enoxaparin Sodium 40 MG DAILY 10/10 1000 AC 10/10 SC 0923 Hydromorphone HCl 0.2 MG ONCE ONE 10/10 1145 DC 04 IV 10/10 1146 1150 Insulin Aspart 0 TIDAC 10/10 1200 AC SC Ketorolac 15 MG Q6P PRN 10/09 1600 DC Tromethamine IV Morphine Sulfate 1 MG ONCE ONE 10/10 1345 DC 10/10 IV 10/10 1346 1320 Morphine Sulfate 1 MG ONCE ONE 10/10 1300 DC 10/10 IV 10/10 1301 1320 Morphine Sulfate 2 MG ONCE ONE 10/10 0815 DC 10/10 IV 10/10 0816 0808 Morphine Sulfate 4 MG Q6P PRN 10/10 0815 AC IV Morphine Sulfate 2 MG Q6P PRN 10/09 1715 DC 10/10 IV 0653 Morphine Sulfate 2 MG Q4P PRN 10/09 1600 DC IV Patient Medication 1 ED .STK-MED ONE 10/10 1402 DC Teaching ED 10/10 1403 Senna/Docusate Sodium 1 TAB BID PRN 10/09 1715 AC PO Sodium Chloride 1,000 ML Q13H 10/09 1700 AC 10/10 IV 0600 Tramadol HCl 50 MG Q4 HRS NEEDED PRN 10/10 0815 AC 10/10 PO 0957 Tramadol HCl 50 MG Q6 10/09 1800 DC 10/10 PO 0600 Tramadol HCl 0 .STK-MED ONE 10/09 1732 DC PO Review of Systems Review of Systems Constitutional: Reports: weakness. Genitourinary: Reports: nocturia (chronic incontinence). 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 Home Who Do You Live With? self Services at Home: Nursing Primary Language: Sinhala Smoking Status: Former Smoker ETOH Use: denies use Exam & Diagnostic Data Vital Signs and I&O Vital Signs Date Time Temp Pulse Resp B/P B/P Pulse O2 O2 Flow FiO2 Mean Ox Delivery Rate 10/10 1519 98.2 62 20 146/68 99 10/10 1135 Room Air 10/10 0723 98.2 72 20 150/74 98 Room Air 10/09 2218 97.8 69 20 140/84 98 Room Air 10/09 1940 98.7 80 20 148/80 100 Room Air 10/09 1830 97.3 78 20 122/60 98 Room Air 10/09 1634 97.3 67 20 149/67 99 Room Air Intake & Output 10/10 1600 10/10 0800 10/10 0000 Intake Total 1200 600 450 Output Total 200 100 Balance 1000 500 450 Intake, IV 600 600 150 Intake, Oral 600 300 Number 1 1 Bowel Movements Output, Stool 200 100 Patient 199 lb Weight Weight Reported by Patient Measurement Method Physical Exam General Appearance: well developed/nourished, no apparent distress, alert, awake Respiratory: normal breath sounds Cardiovascular: regular rate/rhythm Extremities: normal inspection (No edema + cervical neck pain) Neurologic/Psych: awake, alert, oriented x 3 (MS 5/5 bilateral LE and UE) Assessment/Plan Assessment: 76 yo male with h/o high grade adenocarcinoma of the rectum s/p induction chemo- RT in 2015 followed by APR in 12/2015 presents with newly diagnosed metastatic disease involving the cervical spine with epidural compression. Clinically he is neurologically stable and will be started on decadron therapy today. Neurosurgery was asked to see patient. We discussed treatment options and discussed the role of palliative RT. Given his age, performance status and stability from neurologic point of view I would recommend proceeding with RT. Will f/u in the morning and will proceed accordingly. Consult Acknowledgment - Thank you for your consult request.
--- NOTE | 2016-10-10 16:11 | NUR ---
1530- DR. DEE SPOKE TO PT REGARDING RESULTS OF MRI WHICH SHOWED METASTASIS TO SPINE. PT VISABLY UPSET. [facility]AL [facility]ARE CALLED AND CAME TO BEDSIDE. PT SISTER IN LAW (NATALI SOTELO) CALLED PER PT REQUEST. PT SPOKE TO SISTER IN LAW ON THE PHONE.
[2016-10-10 17:48] LABS: HEMATOCRIT 33.5 % (42-52); MEAN CORPUSCULAR HGB 33.2 PG (27.0-31.0); MEAN CORPUSCULAR HGB CONC 33.3 G/DL (33.0-37.0); MEAN CORPUSCULAR VOLUME 99.5 FL (80.0-94.0); MEAN PLATELET VOLUME 8.4 FL (7.4-10.4); RBC DISTRIBUTION WIDTH 16.5 % (11.5-14.5); RED BLOOD CELL CT 3.37 /CUMM (4.70-6.10)
[2016-10-10 17:53] LABS: WHITE BLOOD CELL COUNT 7.5 /CUMM (4.8-10.8)
--- NOTE | 2016-10-10 17:57 | Cons- Oncology ---
See Addendum General Information and HPI Consulting Request Date of Consult: 10/10/16 Requested By: BOBBY BLANCAS,MANDIE [place] Reason for Consult: rectal cancer, cord compression Source of Information: patient, old records Exam Limitations: no limitations History of Present Illness: Mr. Calle is a 76-year-old male with T3N0M0 rectal cancer status post chemoradiation in September 2015 and APR in December 2015 who presented to [facility] with frequent falling over the last 2 weeks. He feels weak in the legs over the last 2-3 weeks. He has fallen multiple times and has hit his head and right elbow. He was some neck pain and right leg pain. He feels his left leg is weaker. He does have some numbness in his hands and feet. He denies any bowel or bladder incontinence. He has not notice any other pain. MRI scan was done today on 10/10/2016 and demonstrated metastatic diesease involving C5-C6 spinous process and left C5 facet associated with heterogeneous enhancing dorsal epidural lesion resulting in compression of the cervical cord at C5-C6 and to a lesser extent C4-C5. He recently had restaging scan on 10/04/2016 and demonstrated no evidence of disease recurrence or metastatic lesion. He currently has neck pain and feels weak in his leg. Neurosurgery and radiation oncology have been consulted. Allergies/Medications Allergies: Coded Allergies: NO KNOWN ALLERGIES (09/15/15) Home Med List: Lisinopril 40 MG TABLET 1 TAB PO DAILY BP (Reported) Metformin HCl 500 MG TABLET 1 TAB PO BID DIABETES (Reported) Mirabegron (Myrbetriq) (Unknown Strength) TAB.ER.24H (Unknown Dose) PO DAILY BLADDER (Reported) Prochlorperazine Maleate 10 MG TABLET 1 TAB PO Q6 PRN GI (Reported) Tramadol HCl 50 MG TABLET 1 TAB PO BIDP PRN PAIN (Reported) Current Medications: Current Medications Sig/Ray Start time Last Medication Dose Route Stop Time Status Admin Acetaminophen 650 MG Q6P PRN 10/09 1600 AC PO Cyanocobalamin 1,000 MCG DAILY 10/09 1918 AC 10/10 PO 0923 Dexamethasone 4 MG Q4 10/10 1800 DC IV Dexamethasone 4 MG Q6 10/10 1800 AC IV Dexamethasone 10 MG ONCE ONE 10/10 1515 DC 10/10 IV 10/10 1516 1708 Enoxaparin Sodium 40 MG DAILY 10/10 1000 AC 10/10 SC 0923 Hydromorphone HCl 0.2 MG ONCE ONE 10/10 1145 DC 10/10 IV 10/10 1146 1150 Insulin Aspart 0 TIDAC 10/10 1200 AC SC Morphine Sulfate 1 MG ONCE ONE 10/10 1345 DC 10/10 IV 10/10 1346 1320 Morphine Sulfate 1 MG ONCE ONE 10/10 1300 DC 10/10 IV 10/10 1301 1320 Morphine Sulfate 2 MG ONCE ONE 10/10 0815 DC 10/10 IV 10/10 0816 0808 Morphine Sulfate 4 MG Q6P PRN 10/10 0815 AC IV Morphine Sulfate 2 MG Q6P PRN 10/09 1715 DC 10/10 IV 0653 Patient Medication 1 ED .STK-MED ONE 10/10 1402 DC Teaching ED 10/10 1403 Senna/Docusate Sodium 1 TAB BID PRN 10/09 1715 AC PO Sodium Chloride 1,000 ML Q13H 10/09 1700 AC 10/10 IV 0600 Tramadol HCl 50 MG Q4 HRS NEEDED PRN 10/10 0815 AC 10/10 PO 0957 Tramadol HCl 50 MG Q6 10/09 1800 DC 10/10 PO 0600 Review of Systems Review of Systems Constitutional: Reports: weakness. Denies: chills, fever. Cardiovascular: Denies: chest pain. Respiratory: Denies: short of breath. Genitourinary: Denies: dysuria. Musculoskeletal: Reports: joint pain, muscle pain (right leg), neck pain. Skin: Denies: rash. Neurological/Psychological: Reports: ataxia, weakness. Hematologic/Endocrine: Denies: bleeding. Immunologic/Allergic: Denies: lymphadenopathy. 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 Home Who Do You Live With? self Services at Home: Nursing Primary Language: Andorran Smoking Status: Former Smoker ETOH Use: denies use Exam & Diagnostic Data Vital Signs and I&O Vital Signs Date Time Temp Pulse Resp B/P B/P Pulse O2 O2 Flow FiO2 Mean Ox Delivery Rate 10/10 1519 98.2 62 20 146/68 99 10/10 1135 Room Air 10/10 0723 98.2 72 20 150/74 98 Room Air 10/09 2218 97.8 69 20 140/84 98 Room Air 10/09 1940 98.7 80 20 148/80 100 Room Air 10/09 1830 97.3 78 20 122/60 98 Room Air Intake & Output 10/10 1600 10/10 0800 10/10 0000 Intake Total 1200 600 450 Output Total 200 100 Balance 1000 500 450 Intake, IV 600 600 150 Intake, Oral 600 300 Number 1 1 Bowel Movements Output, Stool 200 100 Patient 90.265 kg Weight Weight Reported by Patient Measurement Method Physical Exam General Appearance: well developed/nourished, comfortable Eyes: Bilateral: PERRL. Ears, Nose, Throat: normal pharynx Neck: midline tenderness in posterior cervical Respiratory: normal breath sounds, chest non-tender Cardiovascular: regular rate/rhythm Gastrointestinal: normal bowel sounds, soft, non-tender Extremities: no edema Neurologic/Psych: awake, alert, oriented x 3, decrease sensation in the hands, decrease sensation in the feet, strength 4/5 in right lower extremity Cranial Nerves: normal hearing, normal speech, PERRL Lymphatic: no anterior cervical urbano Last 48 Hours of Lab Results: Laboratory Tests 10/10 10/09 1622 1352 Chemistry Sodium (137 - 145 mmol/L) Pending 132 L Potassium (3.5 - 5.1 mmol/L) Pending 4.4 Chloride (98 - 107 mmol/L) Pending 96 L Carbon Dioxide (22 - 30 mmol/L) Pending 25 Anion Gap (5 - 16) Pending 12 BUN (9 - 20 mg/dL) Pending 17 Creatinine (0.7 - 1.2 mg/dL) Pending 0.8 Estimated GFR (>60 ml/min) > 60 BUN/Creatinine Ratio (7 - 25 %) Pending 21.3 Glucose (65 - 99 mg/dL) 122 H Calcium (8.4 - 10.2 mg/dL) 9.2 Total Bilirubin (0.2 - 1.3 mg/dL) 0.6 AST (17 - 59 U/L) 15 L ALT (21 - 72 U/L) 24 Alkaline Phosphatase (< 127 U/L) 59 Creatine Kinase (55 - 170 U/L) 146 Total Protein (6.3 - 8.2 g/dL) 6.3 Albumin (3.5 - 5.0 g/dL) 4.0 Globulin (1.9 - 4.2 gm/dL) 2.3 Albumin/Globulin Ratio (1.1 - 2.2 %) 1.7 Vitamin B12 (239 - 931 pg/mL) 227 L Folate (2.76 - 20.0 ng/mL) > 20.0 H Hematology CBC w Diff Pending NO MAN DIFF REQ WBC (4.8 - 10.8 /CUMM) Pending 7.0 RBC (4.70 - 6.10 /CUMM) Pending 3.21 L Hgb (14.0 - 18.0 G/DL) Pending 10.8 L Hct (42 - 52 %) Pending 31.2 L MCV (80.0 - 94.0 FL) Pending 97.1 H MCH (27.0 - 31.0 PG) Pending 33.5 H RDW (11.5 - 14.5 %) Pending 16.3 H Plt Count (130 - 400 /CUMM) Pending 221 MPV (7.4 - 10.4 FL) Pending 7.2 L Gran % (42.2 - 75.2 %) 86.8 H Lymphocytes % (20.5 - 51.1 %) 7.0 L Monocytes % (1.7 - 9.3 %) 5.5 Eosinophils % (0 - 5 %) 0.6 Basophils % (0.0 - 2.0 %) 0.1 Absolute Granulocytes (1.4 - 6.5 /CUMM) 6.1 Absolute Lymphocytes (1.2 - 3.4 /CUMM) 0.5 L Absolute Monocytes (0.10 - 0.60 /CUMM) 0.4 Absolute Eosinophils (0.0 - 0.7 /CUMM) 0 Absolute Basophils (0.0 - 0.2 /CUMM) 0 PUBS MCHC (33.0 - 37.0 G/DL) Pending 34.5 Imaging/Other Studies: MRI head/C/T/L spines 10/10/2016: -There is a metastatic lesion involving the C5 and C6 spinous processes and the left C5 facet associated with a heterogeneously enhancing dorsal epidural lesion that results in compression of the cervical spinal cord at C5-C6 and to a lesser extent C4-C5 with associated cord signal abnormality. - No additional evidence of metastatic disease along the spinal axis. - There is no definite evidence of intracranial metastatic disease however please note that the brain MRI portion of this study is very degraded by motion artifact. No definite enhancing lesions are identified. - L5 is sacralized. Multilevel lumbar spondylosis, greatest at L4-L5 where grade 1 anterolisthesis and multifactorial degenerative changes result in markedly severe central canal stenosis and severe right foraminal stenosis with compression of the exiting right L4 nerve root. Additional multilevel subarticular zone stenosis and foraminal stenosis at the L3-L4 and L5-S1 levels with mass effect on multiple traversing and exiting nerve roots as discussed above. - At T10-T11 there is a small annular disc bulge and there is bilateral hypertrophic facet arthropathy and ligamentum flavum thickening that result in moderate central canal stenosis and mass effect on the distal thoracic cord. - Complete opacification of the right sphenoid sinus. CT abdomen/pelvis 10/04/2016: 1. Partial left-sided colectomy with left lower quadrant colostomy. Mild stranding within the deep pelvis without obvious mass or lymphadenopathy. No appreciable pathologically enlarged mesenteric or retroperitoneal lymph nodes. 2. 3.5 cm densely calcified lesion within the upper pole of the left kidney. The cystic portion of this lesion demonstrates mild interval increase in size of unknown clinical significance. Clinical correlation recommended. Further evaluation as indicated. Assessment/Plan Assessment: Mr. Calle is a 71-year-old male with T3N0M0 rectal cancer s/p neoadjuvant chemoradiation and APR on 12/2015 who presents with new leg pain and frequent falls. He was evaluated with MRI of the brain/C/T/L spines on 10/10/2016. This demonstrated lesions on the left C5 facet associated with heterogeneously enhancing dorsal epidural and C5 and C6 spinous processes. There is compression of the cervical spinal cord at C5-C6. He has no other evidence of metastatic disease. This may be likely from rectal malginancy. Neurosurgery has been consulted and per verbal report, he would not need surgical intervention from new metastatic disease. Official consultation is pending. Radiation oncology with Dr. Etelvina Hawley has seen patient and plan for RT given stability of neurological symptoms. He will have palliative radiation. Mr. Calle will be started on dexamethasone 10 mg once and then 4 mg every 6 hours. He will continue on his vitamin B12 repletion. Recommendations: 1. Dexamethasone 10 mg IV Once and follow up by 4 mg every 8 hours 2. Neurological evaluation ever 4 hours 3. Follow up neurosurgery recommendations 4. Radiation consultation 5. Plan for likely radiation tomorrow 6. Continue vitamin B12 repletion Problem List: 1. Rectal cancer 2. Cord compression Other Findings/Comments: Please call [phone] with any questions or concerns. Consult Acknowledgment - Thank you for your consult request.
[2016-10-10 18:03] LABS: PLATELET COUNT 201 /CUMM (130-400)
--- NOTE | 2016-10-10 20:08 | Cons- Neurosurgical ---
KAYLIE GARZA 10/10/16 2004: General Information and HPI Consulting Request Date of Consult: 10/10/16 Requested By: BOBBY BLANCAS,MANDIE [place] Reason for Consult: Metastatic carcinoma Source of Information: patient Exam Limitations: no limitations History of Present Illness: 76-year-old gentleman with past medical history of bowel cancer undergoing chemotherapy states that he has been having trouble walking for 4 weeks with weakness of his hands. 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 Home Who Do You Live With? self Services at Home: Nursing Primary Language: Albanian Smoking Status: Former Smoker ETOH Use: denies use Review of Systems Review of Systems Cardiovascular: Denies: chest pain, palpitations. Respiratory: Denies: cough, short of breath, wheezing. Genitourinary: Reports: frequency. Denies: dysuria. Exam & Diagnostic Data Vital Signs and I&O Vital Signs Date Time Temp Pulse Resp B/P B/P Pulse O2 O2 Flow FiO2 Mean Ox Delivery Rate 10/10 1519 98.2 62 20 146/68 99 10/10 1135 Room Air 10/10 0723 98.2 72 20 150/74 98 Room Air 10/09 2218 97.8 69 20 140/84 98 Room Air Intake & Output 10/10 1600 10/10 0810/10 0000 10/09 1600 10/09 0810/09 0000 Intake Total 1200 600 450 Output Total 200 100 Balance 1000 500 450 Intake, IV 600 600 150 Intake, Oral 600 300 Number 1 1 Bowel Movements Output, Stool 200 100 Patient 199 lb 195 lb Weight Weight Reported by Patient Estimated Measurement Method Laboratory Tests 10/10 1622 Chemistry Sodium (137 - 145 mmol/L) 130 L Potassium (3.5 - 5.1 mmol/L) 4.5 Chloride (98 - 107 mmol/L) 96 L Carbon Dioxide (22 - 30 mmol/L) 24 Anion Gap (5 - 16) 11 BUN (9 - 20 mg/dL) 16 Creatinine (0.7 - 1.2 mg/dL) 0.8 Estimated GFR (>60 ml/min) > 60 BUN/Creatinine Ratio (7 - 25 %) 20.0 Hematology CBC w Diff MAN DIFF ORDERED WBC (4.8 - 10.8 /CUMM) 7.5 RBC (4.70 - 6.10 /CUMM) 3.37 L Hgb (14.0 - 18.0 G/DL) 11.2 L Hct (42 - 52 %) 33.5 L MCV (80.0 - 94.0 FL) 99.5 H MCH (27.0 - 31.0 PG) 33.2 H RDW (11.5 - 14.5 %) 16.5 H Plt Count (130 - 400 /CUMM) 201 MPV (7.4 - 10.4 FL) 8.4 Segmented Neutrophils (42.2 - 75.2 %) 76 H Lymphocytes (20.5 - 51.1 %) 15 L Monocytes (1.7 - 9.3 %) 9 Platelet Estimate (ADEQUATE) ADEQUATE Anisocytosis 1+ Macrocytic Cells 1+ PUBS MCHC (33.0 - 37.0 G/DL) 33.3 MRI: IMPRESSION: -There is a metastatic lesion involving the C5 and C6 spinous processes and the left C5 facet associated with a heterogeneously enhancing dorsal epidural lesion that results in compression of the cervical spinal cord at C5-C6 and to a lesser extent C4-C5 with associated cord signal abnormality. - No additional evidence of metastatic disease along the spinal axis. - There is no definite evidence of intracranial metastatic disease however please note that the brain MRI portion of this study is very degraded by motion artifact. No definite enhancing lesions are identified. - L5 is sacralized. Multilevel lumbar spondylosis, greatest at L4-L5 where grade 1 anterolisthesis and multifactorial degenerative changes result in markedly severe central canal stenosis and severe right foraminal stenosis with compression of the exiting right L4 nerve root. Additional multilevel subarticular zone stenosis and foraminal stenosis at the L3-L4 and L5-S1 levels with mass effect on multiple traversing and exiting nerve roots as discussed above. - At T10-T11 there is a small annular disc bulge and there is bilateral hypertrophic facet arthropathy and ligamentum flavum thickening that result in moderate central canal stenosis and mass effect on the distal thoracic cord. - Complete opacification of the right sphenoid sinus. Findings discussed with Dr. Cardenas at 2:57 PM on 10/10/2016. Physical Exam: Alert and oriented good insight to his problem pleasant following commands speeches fluent he has good strength of his deltoids biceps extensor Radialis biceps triceps. He has weakness of his finger flexors 4/5 and intrinsics 2/5 warts on the right than on the left. He is able to lift his lower extremities THE bed quite easily. I did not making walk. He has bilateral upgoing toes cranial nerves grossly intact no clear sensory level Assessment/Plan Assessment/Plan Metastatic disease to the cervical spine epidural space and spinous processes of C5-C6 Cervical myelopathy Mild to moderate compression of the spinal cord Recommendation I would recommend in this particular patient radiation therapy and steroids for now such as Decadron 4 mg every 6 hours although that should be determined by radiation therapy and oncology. If the patient neurological status progresses despite radiation and steroids consideration could be given to surgical decompression although the patient is reluctant to undergo any kind of surgical procedure at this time. Please call me if I can be of any further assistance [phone] This consultation was dictated by Dr. Isabell Chaudhary I personally spoke with the patient and examine him. He could not get into the computer system Consult Acknowledgment - Thank you for your consult request. Attending MD Review Statement Attending Statement Attending Statement: examined this patient, discuss w/resident/PA/ISABELL AGUIAR MD 10/16/16 1616: General Information and HPI Allergies/Medications Home Med List: Cyanocobalamin (Vitamin B-12) 1,000 MCG TABLET 1,000 MCG PO DAILY SUPPLEMENT Dexamethasone 1 MG TABLET 4 MG PO Q6 SPINAL CORD COMPRESSION Lisinopril 40 MG TABLET 1 TAB PO DAILY BP (Reported) Metformin HCl 500 MG TABLET 1 TAB PO BID DIABETES (Reported) Mirabegron (Myrbetriq) (Unknown Strength) TAB.ER.24H 25 MG PO DAILY BLADDER ( Reported) Omeprazole 20 MG CAPSULE.DR 40 MG PO DAILY AC gerd Prochlorperazine Maleate 10 MG TABLET 1 TAB PO Q6 PRN GI (Reported) Tramadol HCl 50 MG TABLET 1 TAB PO BIDP PRN PAIN (Reported) Assessment/Plan Consult Acknowledgment - Thank you for your consult request.
[2016-10-10 22:00] VITALS: BP 144/66
[2016-10-11 06:39] VITALS: BP 134/70
--- NOTE | 2016-10-11 07:49 | PN- Housestaff ---
PRITI BLANCAS,KRWANDAI 10/11/16 0749: Subjective Follow-up For: CORD compression Subjective: Pt was gone for radiation therapy this AM. Did not see him. W Review of Systems Constitutional: Denies: no symptoms. EENTM: Denies: no symptoms. Objective Last 24 Hrs of Vital Signs/I&O Vital Signs Date Time Temp Pulse Resp B/P B/P Pulse O2 O2 Flow FiO2 Mean Ox Delivery Rate 10/11 1417 98.3 80 20 140/70 97 Room Air 10/11 1348 Room Air 10/11 1206 Room Air 10/11 1202 Room Air 10/11 1153 Room Air 10/11 1125 73 134/70 05 0639 97.9 73 20 134/70 94 Room Air 10/10 2200 98.1 72 20 144/66 96 Room Air 10/10 1519 98.2 62 20 146/68 99 Intake & Output 10/11 1600 10/11 0800 10/11 0000 Intake Total 1220 600 300 Output Total 100 50 Balance 1120 600 250 Intake, IV 620 600 300 Intake, Oral 600 Output, Stool 100 50 Physical Exam General Appearance: Alert, Oriented X3, Cooperative, No Acute Distress Assessment/Plan Assessment: This is a 76-year-old male with a PMH of hypertension, rectal cancer status post resection, colostomy, undergoing neoadjuvant radiation and 5-FU chemo on weekly basis who presented to the [facility] with persistent recurrent falls and weakness. PLAN 1. Gait instability: In setting of colon/ rectal cancer on chemotherapy there was concern for metastasis to spine/brain, or chemotherapy side effect in addition to routine causes including musculoskeletal weakness, electrolyte derangements, etc. 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 He has other nerve root compressions in lumbo-sacral area. Scheduled for radiotherapy today. * Radiotherapy on Friday. Followed by another round on Friday. * neurosurgery did not recommend immediate surgery but if he has any focal neurologic deficits will STAT reconsult and recomment pt for surgery * start decadron 4mg q6 * b12 supplementation as level is low * MRI of brain and spine * pain control * Q2 neuro check * Dr. Verdin contacted and on board * Dr. Sanchez informed. * Today patient went for radiotherapy 2. History of hypertension * chronic and stable 3. History of diabetes * Chronic and stable 4. History of rectal cancer status post resection and neoadjuvant chemoradiation therapy: Dr. Cinthia Verdin informed. On board. Will follow up full code subcutaneous Lovenox Problem List: 1. Vitamin B12 deficiency 2. Cord compression 3. Rectal cancer 4. Chronic leg pain 5. Gait instability 6. Minor head injury Pain Ratin Pain Location: none Pain Goal: Remain pain free Pain Plan: none Tomorrow's Labs & Rationales: cbc bep DVT/Prophylaxis: pharmacological, early ambulation low risk ALEXEY CANADA 10/11/16 1044: Subjective Review of Systems Constitutional: Denies: no symptoms. EENTM: Denies: no symptoms. Attending MD Review Statement Attending Statement Attending MD Statement: examined this patient, discuss w/resident/PA/CLINICAL APPLICATIONS MANAGER, agreed w/resident/PA/CLINICAL APPLICATIONS MANAGER, discussed with family, reviewed EMR data (avail), discussed with nursing, discussed with case mgmt, reviewed images, amended to note Attending Assessment/Plan: ASSESSMENT 1. Gait instability/ataxia. 2. ColoRectal cancer s/p colectomy 11/22 3. s/p colostomy s/p radiation treatment on weekly chemotherapy 4. Left kidney mass calcified stable 5. hyponatremia 6. Anemia mutlifactorial 7. Generalised weakness and physical deconditioning. 8. Vitamin b12 defeciency. 9. Metastatic disease 10 Neck pain PLAN Admit to inpatient medical services MRI brain/spine brain or bony metastases reveal cervical compession cord , neurosurgery consulted which recommend dexamethasone 4 q 6 and radiation oncology. If weakness progress then surgical decompression can be offered, however family reluctant. opiate analgesics for pain while watching for constipation closely. bowel regimen consult oncology/radiation oncology. supplement vit b12. PT evaluation. DVT prophylaxis. overall prognosis grim.
--- NOTE | 2016-10-11 08:20 | Discharge Summary ---
Visit Information Visit Dates Admission Date: 10/09/16 Discharge Date: 10/14/16 Hospital Course Course Attending Physician: Dr. Santa Primary Care Physician: SOHAIL BLANCAS,JAYSHREE Hernandez Hospital Course: Patient is a 76-year-old white male with a known history of clinical stage T3NOMO nearly circumferential nonobstructing rectal cancer who presented with rectal bleeding and underwent induction radiation therapy with concomitant chemotherapy. This was completed in September 2015. This was followed by surgical resection in the form of APR(abdominoperineal resection) on 12/28/2015, status post left colostomy [id number] high-grade adenocarcinoma invading perirectal tissue measuring 4 x 3 x 0.9 cm. Surgical margins were negative. 9 total lymph nodes were removed with 0/9 involved with metastatic disease. He presented to [facility] and admitted after presenting with chronic neck pain, weakness and falls. He reported bilateral lower extremity weakness. Initial vitals, labs, examination and imaging were as follows: The patient was admitted to the hospital and was treated for the following problems 1. Recurrent falls due to new metastsic lesion to Cervical Spine @ the level of C5-C6 2.H/O rectal cancer clinical stage T3NOMO now stage 4 with new meatstsic lesionon to cervical spine @ c5 -c6 on this admission this admission 3. History of diabetes 4. History of hypertension Hospital course The patient's initial complaint of bilateral leg weakness and recurrent falls was rendered her with MRI of the whole spine with MRI of brain to rule out any metastatic lesions. Results were significant for metastatic lesions to C5 and C6 with evidence of cord compression in the same area. Neurosurgery evaluated the patient who recommended no surgical intervention at this point. The patient was also evaluated by radiation therapy and would be undergoing palliation radiation therapy for the surgery. His first day of radiation was 10/11/2016. The patient needs to follow with Dr. Chandan Main for ongoing radiation therapy. The patient needs to go for radiation therapy 5 times a week.(friday tiill Friday) In the hospital the patient was maintained on IV Decadron 4 mg every 6. This was converetd to PO dexamethasone 4 mg q6 which the patient should keep on taking on discharge. The patient also is getting chemotherapy with Dr. Lenz on every Friday(once a week). His last date of chemotherapy with 5-fluorouracil was 10/02/2016.He needs to see dr hernandez on 10/14/16 to discuss the need for chemotherapy with the new ongoing rdaition therapy Allergies: Coded Allergies: NO KNOWN ALLERGIES (09/15/15) Significant Procedures: XAM TYPE: MRI - MRI-CERVICAL W & W/O BELLE; MRI-HEAD W & W/O BELLE; MRI-LUMBAR SPINE W & W/O BELLE; MRI-THORACIC W & W/O BELLE EXAMINATION: MRI OF THE BRAIN WITH AND WITHOUT IV CONTRAST MRI OF THE CERVICAL, THORACIC, AND LUMBAR SPINE WITH AND WITHOUT IV CONTRAST CLINICAL INFORMATION: Persistent back pain and recurrent falls to assess for metastatic lesion. COMPARISON: Head CT 08/22/[address] 10/04/2016. TECHNIQUE: MRI of the brain and entire spine are obtained before and following the administration of cc of Gadavist IV contrast without complication. FINDINGS: Brain MRI: This is a very motion degraded MRI of the brain. Very limited assessment for parenchymal signal abnormality given the degree of artifact with suspected mild background chronic microangiopathy. There is no hydrocephalus, extra-axial surface collection, or herniation. The major flow voids at the skull base are preserved. There is no acute infarct on diffusion-weighted imaging. There is no acute intracranial hemorrhage on the gradient recalled echo acquisition. The midline structures are normal. The cerebellar tonsils are normally positioned. The cerebellum and brainstem are normal. The craniocervical junction is normal. Osseous marrow signal intensity is homogenous. The visualized soft tissues are unremarkable. The right sphenoid sinus is completely opacified. Mild mucosal thickening within the maxillary sinuses and throughout the ethmoid air cells bilaterally. The mastoid air cells are clear. Cervical Spine MRI: There is a metastatic lesion involving the C5 and C6 spinous processes and the left C5 facet associated with a dorsal heterogeneously enhancing epidural lesion that results in compression of the cervical spinal cord at C5-C6 and to a lesser extent C4-C5. There are likely T2 signal changes within the cord at this level, limitedly assessed given the degree of artifact. There is no additional marrow placement within the cervical spine to suggest additional osseous metastatic lesions. No additional epidural tumor is appreciated. The cervical arterial flow voids are maintained. There is multilevel cervical spondylosis that is limitedly assessed by the degree of artifact. Other than at C5-C6, there is no additional severe central canal stenosis within the cervical spine. Uncovertebral joint hypertrophy and hypertrophic facet arthropathy results in moderate right foraminal stenosis at C3-C4 and mild to moderate left foraminal stenosis at C4-C5. Thoracic Spine MRI: Thoracic alignment is normal. Vertebral body heights are maintained. There is mild to moderate disc volume loss at the mid thoracic levels. There is mild chronic vertebral body height loss at the T6 and T7 levels. There are no enhancing intraosseous lesions within the thoracic spine. There is no pathologic intrathecal enhancement. At T10-T11 there is a small annular disc bulge and there is bilateral hypertrophic facet arthropathy and ligamentum flavum thickening that result in moderate central canal stenosis and mass effect on the distal thoracic cord. Lumbar Spine MRI: L5 is sacralized and shares a rudimentary disc with S1. There is grade 1 degenerative anterolisthesis of L4 on L5. Lumbar alignment is otherwise maintained. The vertebral body heights are preserved. Bone marrow signal is homogenous and normal. There is no evidence of metastatic disease within the lumbar spine. There are no enhancing intraosseous lesions and there is no pathologic intradural enhancement. A calcified lesion within the upper pole the left kidney is better demonstrated on recent CT imaging. There is fatty marrow conversion within the imaged bony pelvis and sacrum as the sequela of prior radiation therapy. L2-L3: Diffuse annular disc bulge that is eccentric to the left and mild bilateral facet arthropathy. There is moderate left and mild right foraminal stenosis. No central canal stenosis. Disc likely abut the extraforaminal left L2 nerve root. L3-L4: There is a diffuse annular disc bulge and there is severe bilateral hypertrophic facet arthropathy. Mild to moderate central canal stenosis and bilateral subarticular zone stenosis with possible mass effect on the traversing L4 nerve roots bilaterally. Moderate right and mild left foraminal stenosis with mass effect on the exiting right L3 nerve root. L4-L5: Grade 1 anterolisthesis. Diffuse annular disc bulge and severe bilateral facet arthropathy and ligamentum flavum thickening. Markedly severe central canal stenosis. There is a right foraminal disc protrusion that also results in severe right foraminal stenosis and compression of the exiting right L4 nerve root. L5-S1: There is a diffuse annular disc bulge and there is moderate bilateral hypertrophic facet arthropathy. Bilateral subarticular zone stenosis with mass effect on the traversing S1 nerve roots bilaterally. IMPRESSION: -There is a metastatic lesion involving the C5 and C6 spinous processes and the left C5 facet associated with a heterogeneously enhancing dorsal epidural lesion that results in compression of the cervical spinal cord at C5-C6 and to a lesser extent C4-C5 with associated cord signal abnormality. - No additional evidence of metastatic disease along the spinal axis. - There is no definite evidence of intracranial metastatic disease however please note that the brain MRI portion of this study is very degraded by motion artifact. No definite enhancing lesions are identified. - L5 is sacralized. Multilevel lumbar spondylosis, greatest at L4-L5 where grade 1 anterolisthesis and multifactorial degenerative changes result in markedly severe central canal stenosis and severe right foraminal stenosis with compression of the exiting right L4 nerve root. Additional multilevel subarticular zone stenosis and foraminal stenosis at the L3-L4 and L5-S1 levels with mass effect on multiple traversing and exiting nerve roots as discussed above. - At T10-T11 there is a small annular disc bulge and there is bilateral hypertrophic facet arthropathy and ligamentum flavum thickening that result in moderate central canal stenosis and mass effect on the distal thoracic cord. - Complete opacification of the right sphenoid sinus. Pertinent Lab Results: Laboratory Tests 10/11 10/10 0730 1622 Chemistry Sodium (137 - 145 mmol/L) Pending 130 L Potassium (3.5 - 5.1 mmol/L) Pending 4.5 Chloride (98 - 107 mmol/L) Pending 96 L Carbon Dioxide (22 - 30 mmol/L) Pending 24 Anion Gap (5 - 16) Pending 11 BUN (9 - 20 mg/dL) Pending 16 Creatinine (0.7 - 1.2 mg/dL) Pending 0.8 Estimated GFR (>60 ml/min) > 60 BUN/Creatinine Ratio (7 - 25 %) Pending 20.0 Coagulation PT Pending INR Pending Hematology CBC w Diff Pending MAN DIFF ORDERED WBC (4.8 - 10.8 /CUMM) Pending 7.5 RBC (4.70 - 6.10 /CUMM) Pending 3.37 L Hgb (14.0 - 18.0 G/DL) Pending 11.2 L Hct (42 - 52 %) Pending 33.5 L MCV (80.0 - 94.0 FL) Pending 99.5 H MCH (27.0 - 31.0 PG) Pending 33.2 H RDW (11.5 - 14.5 %) Pending 16.5 H Plt Count (130 - 400 /CUMM) Pending 201 MPV (7.4 - 10.4 FL) Pending 8.4 Segmented Neutrophils (42.2 - 75.2 %) 76 H Lymphocytes (20.5 - 51.1 %) 15 L Monocytes (1.7 - 9.3 %) 9 Platelet Estimate (ADEQUATE) ADEQUATE Anisocytosis 1+ Macrocytic Cells 1+ PUBS MCHC (33.0 - 37.0 G/DL) Pending 33.3 Disposition Summary Disposition Principal Diagnosis: New metastatic lesions to C5 and C6 spine with evidence of cord compression on imaging Additional Diagnosis: History of rectal cancer status post resection and radiation therapy status post colostomy Diabetes mellitus Discharge Disposition: SNF Discharge Instructions General Discharge Information Code Status: Full Code Patient's Diet: as tolerated Patient's Activity: as tolerated Follow-Up Instructions/Appts: Please f/u with your pcp in1 week of discharge Please f/u with Dr Hernandez in1 week Medications at Discharge Discharge Medications: Continue taking these medications: Lisinopril (Lisinopril) 40 MG TABLET 1 Tablet ORAL DAILY Metformin HCl (Metformin HCl) 500 MG TABLET 1 Tablet ORAL TWICE DAILY Prochlorperazine Maleate (Prochlorperazine Maleate) 10 MG TABLET 1 Tablet ORAL EVERY SIX HOURS as needed for GI Qty = 30 Tramadol HCl (Tramadol HCl) 50 MG TABLET 1 Tablet ORAL 2 x Daily as needed as needed for PAIN Qty = 30 Mirabegron (Myrbetriq) (Unknown Strength) TAB.ER.24H 25 Milligram ORAL DAILY Qty = 30 Start taking the following new medications: Omeprazole (Omeprazole) 20 MG CAPSULE.DR 40 Milligram ORAL DAILY BEFORE BREAKFAST Qty = 30 No Refills Cyanocobalamin (Vitamin B-12) 1,000 MCG TABLET 1,000 Microgram ORAL DAILY Qty = 30 No Refills Dexamethasone (Dexamethasone) 1 MG TABLET 4 Milligram ORAL EVERY SIX HOURS Qty = 30 No Refills Copies To: CHANDAN BLANCAS,ALLYSON Castorena; SOHAIL BLANCAS,JAYSHREE Hernandez; IRA BLANCAS,GARDENIA [place]
[2016-10-11 08:28] LABS: PT 11.5 SEC (9.4-12.5)
--- NOTE | 2016-10-11 08:29 | PN- Oncology ---
Subjective Subjective: He feels a little better. Pain in the neck is intermittent. He has no new weakness. Review of Systems Cardiovascular: Denies: chest pain. Gastrointestinal: Denies: abdominal pain. Musculoskeletal: Reports: back pain, neck pain. Neurological/Psychological: Reports: ataxia. All Other Systems: Reviewed and Negative Objective Vital Signs and I&Os Vital Signs Date Time Temp Pulse Resp B/P B/P Pulse O2 O2 Flow FiO2 Mean Ox Delivery Rate 10/11 0539 97.9 73 20 134/70 94 Room Air 10/10 2200 98.1 72 20 144/66 96 Room Air 10/10 1519 98.2 62 20 146/68 99 10/10 1135 Room Air Intake & Output 10/11 0800 10/11 0000 10/10 1600 10/10 0800 10/10 0000 Intake Total 922 214 4196 600 450 Output Total 50 200 100 Balance 262 853 0024 500 450 Intake, IV 600 300 600 600 150 Intake, Oral 600 300 Number 1 1 Bowel Movements Output, Stool 50 200 100 Patient 90.265 kg Weight Weight Reported by Patient Measurement Method Physical Exam General Appearance: alert, awake, comfortable Neck: midline tenderness Respiratory: normal breath sounds, chest non-tender, no respiratory distress Cardiovascular: regular rate/rhythm Abdomen: normal bowel sounds, soft, non-tender Extremities: pedal edema Neurologic/Psychiatric: awake, alert, oriented x 3, 4+/5 RLE Current Medications: Current Medications Sig/Ray Start time Last Medication Dose Route Stop Time Status Admin Acetaminophen 650 MG Q6P PRN 10/09 1600 AC PO Cyanocobalamin 1,000 MCG DAILY 10/09 1918 AC 10/10 PO 0923 Dexamethasone 4 MG Q4 10/10 1800 DC IV Dexamethasone 4 MG Q6 10/10 1800 AC 10/11 IV 0511 Dexamethasone 10 MG ONCE ONE 10/10 1515 DC 10/10 IV 10/10 1516 1708 Enoxaparin Sodium 40 MG DAILY 10/10 1000 AC 10/10 SC 0923 Hydromorphone HCl 0.2 MG ONCE ONE 10/10 1145 DC 10/10 IV 10/10 1146 1150 Insulin Aspart 0 TIDAC 10/10 1200 AC 10/10 SC 1742 Lisinopril 40 MG DAILY 10/11 1000 AC PO Morphine Sulfate 1 MG ONCE ONE 10/10 1345 DC 10/10 IV 10/10 1346 1320 Morphine Sulfate 1 MG ONCE ONE 10/10 1300 DC 10/10 IV 10/10 1301 1320 Morphine Sulfate 4 MG Q6P PRN 10/10 0815 AC IV Omeprazole 40 MG DAILY AC 10/11 0746 AC PO Patient Medication 1 ED .STK-MED ONE 10/10 1402 DC Teaching ED 10/10 1403 Senna/Docusate Sodium 1 TAB BID PRN 10/09 1715 AC PO Sodium Chloride 1,000 ML Q13H 10/09 1700 AC 10/10 IV 2349 Tramadol HCl 50 MG Q4 HRS NEEDED PRN 10/10 0815 AC 10/10 PO 1849 Results Last 24 Hours of Lab Results: Laboratory Tests 10/11 10/10 0730 1622 Chemistry Sodium (137 - 145 mmol/L) Pending 130 L Potassium (3.5 - 5.1 mmol/L) Pending 4.5 Chloride (98 - 107 mmol/L) Pending 96 L Carbon Dioxide (22 - 30 mmol/L) Pending 24 Anion Gap (5 - 16) Pending 11 BUN (9 - 20 mg/dL) Pending 16 Creatinine (0.7 - 1.2 mg/dL) Pending 0.8 Estimated GFR (>60 ml/min) > 60 BUN/Creatinine Ratio (7 - 25 %) Pending 20.0 Coagulation PT Pending INR Pending Hematology CBC w Diff Pending MAN DIFF ORDERED WBC (4.8 - 10.8 /CUMM) Pending 7.5 RBC (4.70 - 6.10 /CUMM) Pending 3.37 L Hgb (14.0 - 18.0 G/DL) Pending 11.2 L Hct (42 - 52 %) Pending 33.5 L MCV (80.0 - 94.0 FL) Pending 99.5 H MCH (27.0 - 31.0 PG) Pending 33.2 H RDW (11.5 - 14.5 %) Pending 16.5 H Plt Count (130 - 400 /CUMM) Pending 201 MPV (7.4 - 10.4 FL) Pending 8.4 Segmented Neutrophils (42.2 - 75.2 %) 76 H Lymphocytes (20.5 - 51.1 %) 15 L Monocytes (1.7 - 9.3 %) 9 Platelet Estimate (ADEQUATE) ADEQUATE Anisocytosis 1+ Macrocytic Cells 1+ PUBS MCHC (33.0 - 37.0 G/DL) Pending 33.3 Assessment/Plan Assessment/Recommendations: Mr. Calle is a 71-year-old male with T3N0M0 rectal cancer s/p neoadjuvant chemoradiation and APR on 12/2015 who presents with new leg pain and frequent falls. He was evaluated with MRI of the brain/C/T/L spines on 10/10/2016. This demonstrated lesions on the left C5 facet associated with heterogeneously enhancing dorsal epidural and C5 and C6 spinous processes. There is compression of the cervical spinal cord at C5-C6. He has no other evidence of metastatic disease. Neurosurgery has seen patient and felt he does not require emergent decompression. Radiation oncology has seen patient and plan to initiate radiation therapy. He is now on dexamethasone. He is feeling well on the steroid. He was noted to have low vitamin B12 and is on oral repletion. Recommendations: 1. Dexamethasone 4 mg IV every 6 hours 2. Neurological evaluation ever 4 hours 3. Radiation oncology recommendations 4. Continue vitamin B12 repletion 5. PT/OT 6. PPI daily Please call [phone] with any questions or concerns. Problem List: 1. Rectal cancer 2. Cord compression 3. Vitamin B12 deficiency
[2016-10-11 08:48] LABS: ABSOLUTE BASOPHIL COUNT 0 /CUMM (0.0-0.2); ABSOLUTE EOSINOPHIL COUNT 0 /CUMM (0.0-0.7); ABSOLUTE LYMPH COUNT 0.3 /CUMM (1.2-3.4); ABSOLUTE MONOCYTE COUNT 0.1 /CUMM (0.10-0.60); BASOPHIL % 0.1 % (0.0-2.0); EOSINOPHIL % 0 % (0-5); MEAN CORPUSCULAR HGB 33.5 PG (27.0-31.0); MEAN CORPUSCULAR HGB CONC 33.6 G/DL (33.0-37.0); MEAN CORPUSCULAR VOLUME 99.6 FL (80.0-94.0); MEAN PLATELET VOLUME 7.4 FL (7.4-10.4); PLATELET COUNT 217 /CUMM (130-400); RBC DISTRIBUTION WIDTH 16.7 % (11.5-14.5); RED BLOOD CELL CT 3.41 /CUMM (4.70-6.10); WHITE BLOOD CELL COUNT 5.4 /CUMM (4.8-10.8)
[2016-10-11 10:28] LABS: GRANULOCYTE % 93.5 % (42.2-75.2)
--- NOTE | 2016-10-11 10:48 | NUR ---
PT PICKED UP VIA [facility] AT 0845; BROUGHT BACK TO ROOM BY [facility] AT 1040. WILL CONTINUE TO MONITOR.
--- NOTE | 2016-10-11 11:47 | NUR ---
PHYSICAL THERAPY: ATTEMPTED TO SEE PT THIS MORNING, PT WAS BEING TAKEN FOR RADIATION [place]. WILL FOLLOW UP AGAIN THIS AFTERNOON APPROPRIATE. THANK YOU.
--- NOTE | 2016-10-11 13:06 | NUR ---
SIZEWISE BED ORDERED FOR PT.
--- NOTE | 2016-10-11 13:37 | NUR ---
PT LEFT VIA [facility] FOR RADIATION AGAIN AT 1140 AND RETURNED VIA [facility] AT 1320.
[2016-10-11 14:17] VITALS: BP 140/70
--- NOTE | 2016-10-11 14:47 | NUR ---
PT NOW ON SIZEWISE BED.
--- NOTE | 2016-10-11 15:27 | NUR ---
PT UPSET AND CRYING ABOUT HIS CONDITION AND PLAN OF CARE. MD SUNITHA DEE MADE AWARE. WILL CONTINUE TO MONITOR.
--- NOTE | 2016-10-11 22:36 | NUR ---
SHIFT NOTE- PT A/O X 3 STATES MILD HEADACHE AT THIS TIME- MEDICATED WITH PO TRAMDOL FOR PAIN. DENIES PAIN TO BACK OR NECK. STATES SOME NUMBNESS AND TINGLING TO BILAT HANDS AND FEEL. IVF INFUSING NS @ 75. TOLERATING PO FLUIDS AND DINNER. IV DECADRON GIVEN ORDERED. SKIN INTACT. COLOSTOMY TO LEFT ABD. INCT LARGE AMT'S URINE. ON SIZEWISE MATTRESS BED ALARM IN PLACE. ATE DINNER BY SELF- SET UP. PT EMOTIONAL AT TIMES ABOUT CONDITION "I JUST WANT TO GO HOME, I SHOULD HAVE NEVER COME HERE- ITS JUST A LOT TO TAKE IN" FAMILY IN TO SEE PT. EMOTIONAL SUPPORT GIVEN. WILL CONTINUE TO MONITOR.
[2016-10-11 22:54] VITALS: BP 142/70
[2016-10-12 06:34] VITALS: BP 136/68
--- NOTE | 2016-10-12 07:30 | NUR ---
NURSING NOTE: PT TAKEN TO [facility] FOR RADIATION AT 0721.
--- NOTE | 2016-10-12 07:55 | PN- Housestaff ---
See Addendum Subjective Follow-up For: cord compresion Subjective: Pt feels more weak today compared to yesterday, strength still 5/5. he reported numbness yesterday to the point that he was not able to feed himself , this morning he was feeding himself breakfast. pt kept asking if he will be able to walk again. I informed him of the likely metastastis to the spine and the poor prognosis (6months - 1 year life expectancy). He was appropriately distraught about the news and was crying. He is agreeable to have hospice come talk to him on friday to discuss home hospice (his preference). did not discuss code status at this time. informed nurse to get network operations center engineer to speak to him. unable to draw blood from his this morning, dc'd this am lab and wont be getting labs tomorrow. Review of Systems Constitutional: Reports: see HPI. Objective Last 24 Hrs of Vital Signs/I&O Vital Signs Date Time Temp Pulse Resp B/P B/P Pulse O2 O2 Flow FiO2 Mean Ox Delivery Rate 10/12 0634 98.4 60 20 136/68 98 Room Air 05/ 0000 97 Room Air 05/ 2254 98.0 70 20 142/70 97 Room Air 05/ 1417 98.3 80 20 140/70 97 Room Air 10/11 1348 Room Air 05/05 1206 Room Air 05/05 1202 Room Air 05/05 1153 Room Air 10/11 1125 73 134/70 Intake & Output 10/12 1600 10/12 0800 / 0000 Intake Total 750 600 Output Total 110 Balance 640 600 Intake, IV 600 600 Intake, Oral 150 Number 0 Bowel Movements Output, Stool 10 Output, Urine 100 Physical Exam General Appearance: Alert, Oriented X3, Cooperative HEENT: Atraumatic Neurological: Strength at 5/5 X4 Ext, Sensation Intact Current Medications: Current Medications Sig/Ray Start time Last Medication Dose Route Stop Time Status Admin Acetaminophen 650 MG Q6P PRN 10/09 1600 AC PO Cyanocobalamin 1,000 MCG DAILY 10/09 1918 AC 10/11 PO 0836 Dexamethasone 4 MG Q6 10/10 1800 AC 10/12 IV 0606 Enoxaparin Sodium 40 MG DAILY 10/10 1000 AC 10/11 SC 0835 Insulin Aspart 0 TIDAC 10/10 1200 AC 10/11 SC 1806 Lisinopril 40 MG DAILY 10/11 1000 AC 10/11 PO 1125 Morphine Sulfate 4 MG Q6P PRN 10/10 0815 10/11 IV 1328 Omeprazole 40 MG DAILY AC 10/11 0746 AC 10/12 PO 0606 Patient Medication 1 ED .STK-MED ONE 10/11 1256 DC Teaching ED 10/11 1257 Senna/Docusate Sodium 1 TAB BID PRN 10/09 1715 AC PO Sodium Chloride 1,000 ML Q13H 10/09 1700 AC 10/12 IV 0606 Tramadol HCl 50 MG Q4 HRS NEEDED PRN 10/10 0815 10/11 PO 2228 Assessment/Plan Assessment: This is a 76-year-old male with a PMH of hypertension, rectal cancer status post resection, colostomy, undergoing neoadjuvant radiation and 5-FU chemo on weekly basis who presented to the [facility] with persistent recurrent falls and weakness. PLAN 1. Gait instability: In setting of colon/ rectal cancer on chemotherapy there was concern for metastasis to spine/brain, or chemotherapy side effect in addition to routine causes including musculoskeletal weakness, electrolyte derangements, etc. 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 He has other nerve root compressions in lumbo-sacral area. Underwent radiotherapy today. * neurosurgery did not recommend immediate surgery but if he has any focal neurologic deficits will STAT reconsult and recomment pt for surgery * continue decadron 4mg q6 * b12 supplementation as level is low * MRI of brain and spine * pain control * Q2 neuro check * Dr. Verdin contacted and on board * Dr. Hawley informed. * Today patient went for radiotherapy * Hospice evaluation on Friday 2. History of hypertension * chronic and stable 3. History of diabetes * Chronic and stable 4. History of rectal cancer status post resection and neoadjuvant chemoradiation therapy: Dr. Cinthia Verdin informed. On board. Will follow up full code subcutaneous Lovenox Problem List: 1. Cord compression 2. Vitamin B12 deficiency Pain Ratin Pain Location: none Pain Goal: Remain pain free Pain Plan: mild pp Tomorrow's Labs & Rationales: none DVT/Prophylaxis: mechanical, pharmacological
[2016-10-12] MEDS ORDERED: VITAMIN B-121000 MC3 PO (08:15)
[2016-10-12] MEDS ORDERED: OMEPRAZOLE20 M2 PO (08:15)
--- NOTE | 2016-10-12 08:18 | Patient Discharge Instructions ---
Discharge Instructions General Discharge Information You were seen/treated for: BACK PAIN AND SOINAL CORD COMPRESSION Special Instructions: please f/u with your Dr Main in1 week of discharge PLease f/u with Dr Verdin in1 week of ramila You need to get radiation therapy every day for 5 times a week. Acute Coronary Syndrome Inclusion Criteria At DC or during hospital stay patient has or had the following: ACS DIAGNOSIS No Discharge Core Measures Meds if any: Prescribed or Continued at Discharge Meds if any: NOT Prescribed or Continued at Discharge Congestive Heart Failure Inclusion Criteria At DC or during hospital stay patient has or had the following: CHF DIAGNOSIS No Discharge Core Measures Meds if any: Prescribed or Continued at Discharge Meds if any: NOT Prescribed or Continued at Discharge Cerebrovascular accident Inclusion Criteria At DC or during hospital stay patient has or had the following: CVA/TIA Diagnosis No Discharge Core Measures Meds if any: Prescribed or Continued at Discharge Meds if any: NOT Prescribed or Continued at Discharge Venous thromboembolism Inclusion Criteria VTE Diagnosis No VTE Type NONE VTE Confirmed by (Test) NONE Discharge Core Measures - Per Current guidelines, there needs to be overlap - treatment for the first 5 days of Warfarin therapy. - If discharged on Warfarin prior to 5 days of - overlap therapy, the patient will need to be - assessed for post discharge needs including - *Post discharge parental anticoagulation - *Warfarin and/or parental anticoagulation education - *Follow up date to check INR post discharge At least 5 days overlap therapy as Inpatient No Meds if any: Prescribed or Continued at Discharge Note: Overlap Therapy is Warfarin and Anticoagulant Meds if any: NOT Prescribed or Continued at Discharge
[2016-10-12] MEDS ORDERED: DEXAMETHASONE1 M1 PO (08:19)
[2016-10-12 15:53] VITALS: BP 140/70
--- NOTE | 2016-10-12 16:45 | NUR ---
PT OFF FLOOR TO [facility] FROM 7:20- 8:15AM. PT RETURNED A/V/OX3. REPORTS IMPROVED PAIN TO R LEG AND SIDE 0-2/10 COMPARED TO WHEN HE WAS ADMITTED. DENIES NEED FOR PAIN MEDICATION AT THIS TIME. NO CHANGE IN CMS AND NEURO CHECKS.
--- NOTE | 2016-10-12 16:53 | NUR ---
1645- PT WOULD LIKE TO ADD HIS NIECE NIRAJ VELAZCO AN EMERGENCY CONTACT. CELL: [phone]
[2016-10-12 22:48] VITALS: BP 140/70
--- NOTE | 2016-10-13 04:15 | NUR ---
NURSING NOTE: COLOSTOMY STOMA CLEANED AND BAG CHANGED PER PATIENT REQUEST AT THIS TIME.
[2016-10-13 06:22] VITALS: BP 142/62
--- NOTE | 2016-10-13 13:45 | PN- Att Addend ---
Attending Addendum Attending Brief Note 76M PMH rectal cancer s/p colectomy 2016 currently on 5-FU and s/p radiation, now spinal metastases with cord compression and lower extremity weakness and unable to ambulate. Patient has no new complaints and no new neurological symptoms. Resident Dr. Renee had discussion 5/ with patient regarding prognosis and clinical course. Patient is emotional and upset today at his prognosis. He has no physical complaints and feels well overall. Shoe Repairer has been called to treatment counselor patient. Current Medications Sig/Ray Start time Last Medication Dose Route Stop Time Status Admin Acetaminophen 650 MG Q6P PRN 10/09 1600 AC PO Cyanocobalamin 1,000 MCG DAILY 10/09 1918 AC 10/13 PO 1212 Dexamethasone 4 MG Q6 10/10 1800 AC 10/13 IV 1212 Enoxaparin Sodium 40 MG DAILY 10/10 1000 AC 10/13 SC 1212 Insulin Aspart 0 TIDAC 10/10 1200 AC 10/13 SC 1212 Lisinopril 40 MG DAILY 10/11 1000 AC 10/13 PO 1212 Morphine Sulfate 4 MG Q6P PRN 10/10 0815 AC 10/11 IV 1328 Omeprazole 40 MG DAILY AC 10/11 0746 AC 10/13 PO 0556 Senna/Docusate Sodium 1 TAB BID PRN 10/09 1715 AC PO Sodium Chloride 1,000 ML Q13H 10/09 1700 AC 10/13 IV 1214 Tramadol HCl 50 MG Q4 HRS NEEDED PRN 10/10 0815 AC 10/11 PO 2228 1. Gait instability/ataxia. 2. Rectal cancer s/p colectomy 11/22 3. s/p colostomy s/p radiation treatment on weekly chemotherapy 4. Left kidney mass calcified stable 5. hyponatremia 6. Anemia mutlifactorial 7. Generalised weakness and physical deconditioning. 8. Vitamin b12 defeciency. Plan - Continue on general medicine - Continue Dexamethasone - Follow oncology and radiation oncology recommendations - Continue home medications - Follow PT - DVT PPx
[2016-10-13 15:53] VITALS: BP 140/80
--- NOTE | 2016-10-13 16:26 | PN- Housestaff ---
Subjective Follow-up For: COLON/RECTAL CANCER Cord compression Subjective: Saw patient at bedside this a.m. Patient was in poor spirits. He stated he didn't really want to talk to me. Review of Systems Constitutional: Reports: no symptoms. Objective Last 24 Hrs of Vital Signs/I&O Vital Signs Date Time Temp Pulse Resp B/P B/P Pulse O2 O2 Flow FiO2 Mean Ox Delivery Rate 10/13 1553 98.2 68 20 140/80 97 10/13 1212 88 132/80 10/13 0622 98.0 57 16 142/62 96 Room Air 10/12 2248 98.2 53 20 140/70 97 Room Air Intake & Output 10/13 1600 10/13 0800 10/13 0000 Intake Total 400 860 900 Output Total 1 500 Balance 400 859 400 Intake, IV 620 600 Intake, Oral 400 240 300 Output, Stool 1 Output, Urine 500 Physical Exam General Appearance: Alert, Oriented X3, Mild Distress Skin: No Significant Lesion HEENT: Atraumatic, PERRLA, EOMI Neck: Supple Cardiovascular: Regular Rate, Normal S1, Normal S2 Lungs: Normal Air Movement Abdomen: Soft, No Tenderness Neurological: Normal Speech Extremities: Normal Pulses, EXTREMITIES spontaneously. Strength equal in both lower extremities. Slightly decreased in right upper extremity. Current Medications: Current Medications Sig/Ray Start time Last Medication Dose Route Stop Time Status Admin Acetaminophen 650 MG Q6P PRN 10/09 1600 AC PO Cyanocobalamin 1,000 MCG DAILY 10/09 1918 AC 10/13 PO 1212 Dexamethasone 4 MG Q6 10/10 1800 AC 10/13 IV 1212 Enoxaparin Sodium 40 MG DAILY 10/10 1000 AC 10/13 SC 1212 Insulin Aspart 0 TIDAC 10/10 1200 AC 10/13 SC 1212 Lisinopril 40 MG DAILY 10/11 1000 AC 05/ PO 1212 Morphine Sulfate 4 MG Q6P PRN 10/10 0815 AC 10/11 IV 1328 Omeprazole 40 MG DAILY AC 10/11 0746 AC 10/13 PO 0556 Senna/Docusate Sodium 1 TAB BID PRN 10/09 1715 AC PO Sodium Chloride 1,000 ML Q13H 10/09 1700 AC 05/07 IV 1214 Tramadol HCl 50 MG Q4 HRS NEEDED PRN 10/10 0815 AC 10/11 PO 2228 Assessment/Plan Assessment: This is a 76-year-old male with a PMH of hypertension, rectal cancer status post resection, colostomy, undergoing neoadjuvant radiation and 5-FU chemo on weekly basis who presented to the [facility] with persistent recurrent falls and weakness. PLAN 1. Gait instability: In setting of colon/ rectal cancer on chemotherapy there was concern for metastasis to spine/brain, or chemotherapy side effect in addition to routine causes including musculoskeletal weakness, electrolyte derangements, etc. 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 He has other nerve root compressions in lumbo-sacral area. Underwent radiotherapy today. * neurosurgery did not recommend immediate surgery but if he has any focal neurologic deficits will STAT reconsult and recommend pt for surgery * continue decadron 4mg q6 * b12 supplementation as level is low * MRI of brain and spine * pain control * Q2 neuro check * Dr. Verdin contacted and on board * Dr. Hawley informed. * Today patient went for radiotherapy * Hospice evaluation on Friday 2. History of hypertension * chronic and stable 3. History of diabetes * Chronic and stable 4. History of rectal cancer status post resection and neoadjuvant chemoradiation therapy: Dr. Cinthia Verdin informed. On board. Will follow up full code subcutaneous Lovenox Problem List: 1. Vitamin B12 deficiency 2. Cord compression 3. Rectal cancer Pain Ratin Pain Location: back and neck Pain Goal: Remain pain free Pain Plan: none Tomorrow's Labs & Rationales: cbc bep DVT/Prophylaxis: mechanical, pharmacological
[2016-10-13 22:09] VITALS: BP 138/76
[2016-10-14 06:30] VITALS: BP 152/76
--- NOTE | 2016-10-14 13:18 | NUR ---
PT TO [facility] FOR [facility] THERAPY VIA AMBULANCE AT 2828
--- NOTE | 2016-10-14 13:29 | PN- Housestaff ---
PRITI BLANCAS,[facility] 10/14/16 1329: Subjective Follow-up For: cord compression Subjective: Saw pt at bedside. He was teary about his diagnosis. Review of Systems Constitutional: Denies: chills, fever, weakness. EENTM: Reports: no symptoms. Cardiovascular: Denies: chest pain, palpitations. Respiratory: Reports: no symptoms. Gastrointestinal: Reports: no symptoms. Genitourinary: Reports: no symptoms. Musculoskeletal: Reports: no symptoms. Skin: Reports: no symptoms. Objective Last 24 Hrs of Vital Signs/I&O Vital Signs Date Time Temp Pulse Resp B/P B/P Pulse O2 O2 Flow FiO2 Mean Ox Delivery Rate 10/14 1100 88 140/82 10/14 0630 98.1 61 18 152/76 96 Room Air 10/14 0000 96 Room Air 10/13 2209 98.1 84 18 138/76 96 Room Air 10/13 1553 98.2 68 20 140/80 97 Intake & Output 10/14 1600 10/14 0800 / 0000 Intake Total 700 120 Output Total 20 Balance 680 120 Intake, IV 600 Intake, Oral 100 120 Output, Stool 20 Patient 89.811 kg Weight Physical Exam General Appearance: Oriented X3, Cooperative, Mild Distress Skin: No Rashes, No Significant Lesion HEENT: Atraumatic, PERRLA, EOMI Neck: Supple Cardiovascular: Regular Rate, Normal S1, Normal S2 Lungs: Normal Air Movement Abdomen: Soft, No Tenderness Neurological: Normal Tone, Sensation Intact, Cranial Nerves 3-12 NL, Chronic diminished strength on LUE Last 24 Hrs of Lab/Gorge Results Last 24 Hrs of Labs/Mics: Laboratory Tests 10/14/16 0710: Anion Gap 7, Estimated GFR > 60, BUN/Creatinine Ratio 38.8 H Assessment/Plan Assessment: This is a 76-year-old male with a PMH of hypertension, rectal cancer status post resection, colostomy, undergoing neoadjuvant radiation and 5-FU chemo on weekly basis who presented to the [facility] with persistent recurrent falls and weakness. PLAN 1. 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 He has other nerve root compressions in lumbo-sacral area. Undergoing ratiotherapy inpatient. * neurosurgery did not recommend immediate surgery but if he has any focal neurologic deficits will STAT reconsult and recommend pt for surgery * continue decadron 4mg q6 * b12 supplementation as level is low * pain control * Q2 neuro check * Dr. Verdin contacted and on board * Dr. Hawley informed. * Today patient went for radiotherapy 2. History of hypertension * chronic and stable 3. History of diabetes * Chronic and stable 4. History of rectal cancer status post resection and neoadjuvant chemoradiation therapy: Dr. Cinthia Verdin informed. On board. Will follow up full code subcutaneous Lovenox Problem List: 1. Vitamin B12 deficiency 2. Cord compression 3. Rectal cancer Pain Ratin Pain Location: none Pain Goal: Remain pain free Pain Plan: none Tomorrow's Labs & Rationales: cbc bep DVT/Prophylaxis: mechanical, pharmacological ALEXEY [place] 10/14/16 1353: Attending MD Review Statement Attending Statement Attending MD Statement: examined this patient, discuss w/resident/PA/FORM TAMPING MACHINE OPERATOR, agreed w/resident/PA/FORM TAMPING MACHINE OPERATOR, discussed with family, reviewed EMR data (avail), discussed with nursing, discussed with case mgmt, reviewed images, amended to note Attending Assessment/Plan: 1. Gait instability/ataxia. 2. Rectal cancer s/p colectomy 11/22 3. s/p colostomy s/p radiation treatment on weekly chemotherapy 4. Left kidney mass calcified stable 5. hyponatremia 6. Anemia mutlifactorial 7. Generalised weakness and physical deconditioning. 8. Vitamin b12 defeciency. Plan - Continue on general medicine - Continue Dexamethasone - Follow oncology and radiation oncology recommendations - Continue home medications - D/C today, f/u o/p oncology Dr Silva and radiology Dr Main - DVT PPx
[2016-10-14 14:50] VITALS: BP 130/70
[2016-10-14 15:27] VITALS: BP 130/70
--- NOTE | 2016-10-14 16:02 | PN- Oncology ---
Subjective Subjective: He feels a little stronger. He asked if he can still have surgery. He got his radiation on Friday. He is still on dexamethasone currently. Review of Systems: Cardiovascular: Denies: chest pain. Gastrointestinal: Denies: abdominal pain. Musculoskeletal: Reports: back pain, neck pain. Neurological/Psychological: Reports: ataxia. All Other Systems: Reviewed and Negative Objective Vital Signs and I&Os Vital Signs Date Time Temp Pulse Resp B/P B/P Pulse O2 O2 Flow FiO2 Mean Ox Delivery Rate 10/14 1527 97.1 74 20 130/70 10/14 1450 97.1 74 20 130/70 99 Nasal 2.0L Cannula 10/14 1100 88 140/82 10/14 0630 98.1 61 18 152/76 96 Room Air 10/14 0000 96 Room Air 10/13 2209 98.1 84 18 138/76 96 Room Air Intake & Output 10/14 1600 10/14 0800 / 0000 10/13 1600 10/13 0800 05/ 0000 Intake Total 700 120 925 860 900 Output Total 20 1 500 Balance 680 120 925 859 400 Intake, IV 600 525 620 600 Intake, Oral 100 120 400 240 300 Output, Stool 20 1 Output, Urine 500 Patient 89.811 kg Weight Physical Exam: General Appearance: alert, awake, comfortable Neck: midline tenderness Respiratory: normal breath sounds, chest non-tender, no respiratory distress Cardiovascular: regular rate/rhythm Abdomen: normal bowel sounds, soft, non-tender Extremities: pedal edema Neurologic/Psychiatric: awake, alert, oriented x 3, 5/5 BLE Current Medications: Current Medications Sig/Ray Start time Last Medication Dose Route Stop Time Status Admin Acetaminophen 650 MG Q6P PRN 10/09 1600 AC PO Cyanocobalamin 1,000 MCG DAILY 10/09 1918 AC 05/ PO 1100 Dexamethasone 4 MG Q6 10/14 1200 AC 10/14 PO 1238 Dexamethasone 4 MG Q6 10/10 1800 DC 10/14 IV 0605 Enoxaparin Sodium 40 MG DAILY 10/10 1000 AC 08 SC 1100 Insulin Aspart 0 TIDAC 10/10 1200 AC 10/14 SC 1142 Lisinopril 40 MG DAILY 10/11 1000 AC /08 PO 1100 Melatonin 5 MG AT BEDTIME 10/13 2245 AC 10/13 PO 2253 Morphine Sulfate 4 MG Q6P PRN 10/10 0815 DC 10/11 IV 1328 Omeprazole 40 MG DAILY AC 10/11 0746 AC 10/14 PO 0605 Patient Medication 1 ED .STK-MED ONE 10/14 1406 DC Teaching ED 10/14 1407 Senna/Docusate Sodium 1 TAB BID PRN 10/09 1715 AC PO Sodium Chloride 1,000 ML Q13H 10/09 1700 DC 10/13 IV 2018 Tramadol HCl 50 MG Q4 HRS NEEDED PRN 10/10 0815 AC 10/14 PO 1101 Results Last 24 Hours of Lab Results: Laboratory Tests 10/14 709 Chemistry Sodium (137 - 145 mmol/L) 133 L Potassium (3.5 - 5.1 mmol/L) 4.2 Chloride (98 - 107 mmol/L) 102 Carbon Dioxide (22 - 30 mmol/L) 24 Anion Gap (5 - 16) 7 BUN (9 - 20 mg/dL) 31 H Creatinine (0.7 - 1.2 mg/dL) 0.8 Estimated GFR (>60 ml/min) > 60 BUN/Creatinine Ratio (7 - 25 %) 38.8 H Assessment/Plan Assessment/Recommendations: Mr. Calle is a 71-year-old male with T3N0M0 rectal cancer s/p neoadjuvant chemoradiation and APR on 12/2015 who presents with new leg pain and frequent falls. He was evaluated with MRI of the brain/C/T/L spines on 10/10/2016. This demonstrated lesions on the left C5 facet associated with heterogeneously enhancing dorsal epidural and C5 and C6 spinous processes. There is compression of the cervical spinal cord at C5-C6. He has no other evidence of metastatic disease. Patient has been seen by neurosurgery and was felt to not require emergent surgical intervention. Radiation oncology has seen patient and has initiated radiation therapy. He is on dexamethasone and seem to be tolerating it well. He is on dexamethasone 4 mg every 6 hours. He can be continued on this and will need to slowly taper off therapy. He should be continued on vitamin B12 supplementation. Depending on tolerance, he would likely need IM supplementation. He will need PT/OT with likely rehab placement. He will need to follow up with Dr. Verdin after discharge. 1. Dexamethasone 4 mg PO every 6 hours 2. Continue radiation as per radiation oncology 3. Continue vitamin B12 repletion 4. PT/OT evaluation 5. PPI daily 6. Follow up with Dr. Verdin within 1 week after discharge Please call [phone] with any questions or concerns. Problem List: 1. Rectal cancer 2. Cord compression 3. Vitamin B12 deficiency 4. Gait instability
== END 2016-10-14 16:20 | DRG 543 ==
LOC: ERH 12:31 → ERHI 15:43 → 2NA 15:43 → ENRESERV 18:12 → 2NA 19:23 → ENPENDDIS 10-14 13:53 → 2NA 10-14 16:20
PROVIDERS: Internal Medicine Nephrology; Physician Assistant Medical; Student in an Organized Health Care Education/Training Program; ADMIT Internal Medicine
DX: C79.51 Secondary malignant neoplasm of bone (principal); C20 Malignant neoplasm of rectum; E11.9 Type 2 diabetes mellitus without complications; E87.1 Hypo-osmolality and hyponatremia; G95.29 Other cord compression; I10 Essential (primary) hypertension; Z93.3 Colostomy status; Z87.891 Personal history of nicotine dependence; R27.0 Ataxia, unspecified; E53.8 Deficiency of other specified B group vitamins; Z79.84 Long term (current) use of oral hypoglycemic drugs
CPT/HCPCS: 2NAP; 70552; 72142; 72147; 72149; 36415; 70553; 72100; 72156; 72157; 72158; 72170; 77290-TC; 77307-TC; 77334-TC; 77412-TC; 82436; 97110-GO; 97161-GP; 97530-GO; A9579; J1100; J1650; J2270